=== PATIENT | male | born 1960 | race Caucasian/White ===

== ENCOUNTER 2020-11-12 00:46 | Day surgery (SDC) | payer OTHER, SELFPAY ==
[2020-10-31 14:26] VITALS: BMI 27.3
[2020-11-12 06:58] VITALS: BP 134/90; PULSE 55; RESP 18; TEMP 35.9; O2SAT 100; BMI 27.3
[2020-11-12] MEDS: LACTATED RINGERS 1,000 ML 30 ML IV CONT (07:11)
--- NOTE | 2020-11-12 07:16 | PM.HPGS ---
History of Present Illness History of Present Illness Consent: Risks, benefits, and alternatives have been discussed and questions answered. Patient agrees to proceed with procedure. Chief complaint: neoplasm screening Narrative: Franky Cohen is a 60 year old male Referred for colon cancer screening; his last colonoscopy was 10 years ago Review of Systems Review of Systems: All systems reviewed & are unremarkable except as noted in HPI and below PMFSH Family History Family History Other Cerebrovascular accident Family history of allergic disorder Hypertension Malignant neoplasm of prostate Social History Social History Smoking status: Never smoker Alcohol intake: current Drinks per week: 5 Living arrangements: with family Spiritual care concerns: No Meds Home Medications and Allergies Home Medications Medication Instructions Recorded Confirmed Type sodium,potassium,mag sulfates 17.5 See Rx Instructions PO .COMPLEX 10/03/20 Rx gram-3.13 gram-1.6 gram oral soln #354 ml amlodipine 5 mg PO DAILY 10/31/20 11/12/20 History rosuvastatin 5 mg PO DAILY 10/31/20 11/12/20 History Allergies Allergy/AdvReac Type Severity Reaction Status Date / Time Penicillins Allergy Unknown Other Verified 10/31/20 14:25 Vital Signs Vital Signs - 24 hr 11/12/20 06:58 Temperature 35.9 C L Pulse Rate 55 L Respiratory Rate 18 Blood Pressure 134/90 Pulse Oximetry 100 Exam Resp: Auscultation: clear to auscultation bilaterally Cardio: Rate: regular rate Rhythm: regular rhythm GI: GI Palp: Yes Soft to palpation and No Tenderness to palpation present (GI) Assessment and Plan Assessment and plan (1) Colon cancer screening: Code(s): Z12.11 - Encounter for screening for malignant neoplasm of colon Status: Acute Assessment and Plan: Colonoscopy with possible biopsy or polypectomy or cautery or injection of substances.
--- NOTE | 2020-11-12 07:21 | WPDANESEPPF ---
Anes - Initial Pre Proc Eval Procedure: Operation Date: 11/12/20 08:00 Proposed Procedures p Screening Colonoscopy - Steve Moses MD Date/Time: 11/12/20 07:21 Surgeon: Steve Moses MD Pre Op Diagnosis: neoplasm screening Patient Data Age: 60 Gender: M Height: 1.75 m Weight: 84.2 kg Last Vital Signs Temp 35.9 C L 11/12/20 06:58 Pulse 55 L 11/12/20 06:58 Resp 18 11/12/20 06:58 BP 134/90 11/12/20 06:58 Pulse Ox 100 11/12/20 06:58 Allergies Allergy/AdvReac Type Severity Reaction Status Date / Time Penicillins Allergy Unknown Other Verified 10/31/20 14:25 Home Medications Medication Instructions Recorded Confirmed Type sodium,potassium,mag sulfates 17.5 See Rx Instructions PO .COMPLEX 10/03/20 Rx gram-3.13 gram-1.6 gram oral soln #354 ml amlodipine 5 mg PO DAILY 10/31/20 11/12/20 History rosuvastatin 5 mg PO DAILY 10/31/20 11/12/20 History Patient hx anesthesia problems: none Family hx anesthesia problems: none PMFSH Past Medical History Medical History (Updated 11/12/20 @ 07:21 by Adrian Yen MD) HTN (hypertension) Hyperlipidemia Surgical History Surgical History (Updated 11/12/20 @ 07:22 by Adrian Yen MD) H/O arthroscopic knee surgery H/O hernia repair Family History Family History Other Cerebrovascular accident Family history of allergic disorder Hypertension Malignant neoplasm of prostate Social History Social History Smoking status: Never smoker Alcohol intake: current Drinks per week: 5 Living arrangements: with family Spiritual care concerns: No Anes - Eval Final PreProcedure Day of Procedure 11/12/20 07:21 Patient weight: overweight Heart: regular rate and rhythm Lungs: clear to auscultation Airway: Mallampati scale class II Neurological: alert and oriented Last oral intake: >/= 8 hours ASA classification: II Emergent: no Anesthetic plan: proceed Anesthesia type and monitoring: general GIVS and standard monitoring Informed Consent: The patient's anesthetic plan and its attendant risks and benefits were discussed with the patient/family/POA. Questions were solicited and answers provided to the satisfaction of the patient/family/POA.
[2020-11-12 08:11] VITALS: BP 99/72; PULSE 55; RESP 19; O2SAT 96
[2020-11-12 08:21] VITALS: BP 113/70; PULSE 58; RESP 18; O2SAT 98
[2020-11-12 08:31] VITALS: BP 107/75; PULSE 52; RESP 23; O2SAT 98
== END 2020-11-12 08:38 | disposition home or self-care (01) ==
PROVIDERS: PCP Physician Assistant; Visit Provider Internal Medicine Gastroenterology
PROC: 0DJD8ZZ Inspection of Lower Intestinal Tract, Via Natural or Artificial Opening Endoscopic (ICD-10-PCS; CPT 45378; principal; 2020-11-12 08:00)
DX: Z12.11 Encounter for screening for malignant neoplasm of colon (principal); K57.30 Diverticulosis of large intestine without perforation or abscess without bleeding; I10 Essential (primary) hypertension; E78.5 Hyperlipidemia, unspecified
CPT/HCPCS: 45378; J2704; J7120

== ENCOUNTER 2025-03-23 02:33 | Day surgery (SDC) | payer BC, SELFPAY ==
[2025-03-03 13:36] VITALS: BMI 27.0
--- OUTSIDE RECORDS SUMMARY | 2025-03-23 02:36 | XMS_ITS | Encounter Summary ---
Author Organization [facility] Address [address] [place] [address] Care Team Providers Care Geriatrics Physician Name Role Phone Rodolfo Rodriguez MD Primary Care Provider Encounter Details Date Type Department Care Team (Latest Contact Info) Description 12/09/2004 Outpatient Historical [facility] Chinmay Cuellar MD NO ADDRESS ON FILE PAIN IN [place] (Primary Dx) Social History Tobacco Use Types Packs/Day Years Used Date Smoking Tobacco: Never Assessed Sex and Gender Information Value Date Recorded Sex Assigned at Not on file Legal Sex Male 5:15 AM RN ADVICE Gender Identity Not on file Sexual Orientation Not on file documented as of this encounter Plan of Treatment Not on file documented as of this encounter Visit Diagnoses Diagnosis Pain in limb- Primary documented in this encounter Care Teams Geriatrics Physician Relationship Specialty Start Date End Date Rodolfo Rodriguez MD [address] [place] [phone] PCP - General 12/09/04 documented as of this encounter
--- OUTSIDE RECORDS SUMMARY | 2025-03-23 02:36 | XMS_ITS | Clinical Summary ---
Author Organization [facility] Address [address] [place] [address] Care Team Providers Care Tacking Machine Operator Name Role Phone Enoch Fournier MD Primary Care Provider Source Comments [facility],non-owned Affiliates and Associated Physician Practices is amultiple site organization consisting of ambulatory clinics and hospital sitesin [place], [place], [place] and [place]. This disclosure is being madepursuant to the Care Everywhere program and may not contain all information available regarding this patient. Last updated 18.[facility] Allergies Active Allergy Reactions Criticality Noted Date Comments Penicillins Unknown 01/31/2020 Medications * Be aware that medications may not be up to date on this document. Alwaysverify current medications with the patient. amLODIPine (NORVASC) 5 MG tablet Take 5 mg by mouth once daily 09/21/2019 Active doxycycline monohydrate 100 MG tablet Take 100 mg by mouth once daily 01/13/2020 Active IBUPROFEN PO Take by mouth as needed Active Active Problems Problem Noted Date Diagnosed Date Lipid screening 06/01/2013 Family History Medical History Relation Name Comments CVA Father Dementia Mother Relation Name Status Comments Brother Alive Father Mother Social History Tobacco Use Types Packs/Day Years Used Date Smoking Tobacco: Never Smokeless Tobacco: Never Alcohol Use Standard Drinks/Week Comments Yes 0 (1 standard drink = 0.6 oz pur e alcohol) AUDIT-C Answer Date Recorded Q1: How often do you have a drink containing alc ohol? 2-3 times a week 01/31/2020 Q2: How many drinks containi ng alcohol do you have on a typical day when you are drinking? 1 or 2 01/31/2020 Q3: How often do you have si x or more drinks on one occasion? 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 Not on file Not on file Not on file Last Filed Vital Signs Vital Sign Reading Time Taken Comments Blood Pressure 154/92 01/31/2020 2:06 PM CDT Pulse - - Temperature - - Respiratory Rate - - Oxygen Saturation - - Inhaled Oxygen Concentration - - Weight 88.5 kg (195 lb) 01/31/2020 2:06 PM CDT Height 175.3 cm (5' 9) 01/31/2020 2:06 PM CDT Body Mass Index 28.8 01/31/2020 2:06 PM CDT Plan of Treatment Health Maintenance Due Date Last Done Comments COLOGUARD (AGES 45-75) - COL ON CA SCREENING 1960 COLON MONITORING 1960 COLONOSCOPY - COLON CA SCREENING 1960 CT COLONOGRAPHY - COLON CA SCREENING 1960 Colorectal Cancer Screening 1960 FIT - COLON CA SCREENING 1960 FLEX SIG - COLON CA SCREENING 1960 HIV SCREENING 08/07/1975 HEPATITIS C SCREENING 08/02/1978 DTAP/TDAP/TD VACCINES (1 - Tdap) 08/07/1979 PNEUMOCOCCAL VACCINE 50+ (1 of 1 - PCV) 2010 ZOSTER VACCINE (1 of 2) 2010 LIPID TESTING 06/01/2018 06/01/2013, 07/19/2008 SCREENING FOR DIABETES 01/31/2020 4, 07/19/2008 DEPRESSION SCREENING 04/20/2024 COVID-19 VACCINE ( - 2024-2 6 season) 2024 INFLUENZA VACCINE (#1) 2024 Respiratory Syncytial Virus (RSV) Vaccine Pt: or over 60 yrs (1 - 1-dose 75+ series) 08/07/2035 HEPATITIS B VACCINE Aged Out No longe r eligible based on patient's age to complete this topic HIB VACCINE Aged Out No longer eligi ble based on patient's age to complete this topic HPV VACCINE Aged Out No longer eligi ble based on patient's age to complete this topic MENINGOCOCCAL (Group B) VACCINE SHARED DECISION-MAKING Aged Out No longer eligible based on patient's age to complete this topic MENINGOCOCCAL GROUPS A/C/Y/W VACCINE Aged Out No longer eligible b ased on patient's age to complete this topic Procedures Procedure Name Priority Date/Time Associated Diagnosis Comments GLUCOSE Routine 06/01/2013 8:11 AM PROOFER Lipid screening LIPID PROFILE Routine 06/01/2013 8:11 AM PROOFER Lipid screening from Last 3 Months or Most Recently Relevant to Health Maintenance Results * GLUCOSE (06/01/2013 8:11 AM PROOFER) Glucose 89 74 - 106 mg/dL 06/01/2013 10:[address] [facility] Blood BLOOD SPECIMEN / Unknown Lab Venipuncture / Unknown 06/01/2013 8:11 AM PROOFER 06/01/2013 9:40 AM [facility] Lydia Brady MD LAB - CHEMISTRY ORDERABLES Final Result [facility] [address] [place] [address] * (ABNORMAL) LIPID PROFILE (06/01/2013 8:11 AM PROOFER) Cholesterol 224(H) <200 mg/dL 06/01/2013 10:[address] [facility] Triglycerides 141 <150 mg/dL 06/01/2013 10:[address] [facility] HDL Cholesterol 32(L) >40 mg/dL 4 10:[address] [facility] LDL Calculated 164(H) <130 mg/dL 06/01/2013 10:[address] [facility] VLDL Calculated 28 <=30 mg/dL 4 10:[address] [facility] Chol HDL Ratio 7.0(H) <4.5 06/01/2013 10:[address] [facility] Blood BLOOD SPECIMEN / Unknown Lab Venipuncture / Unknown 06/01/2013 8:11 AM PROOFER 06/01/2013 9:40 AM [facility] us Lydia Brady MD LAB - CHEMISTRY ORDERABLES Final Result [facility] [address] [place] [address] from Last 3 Months or Most Recently Relevant to Health Maintenance [facility] Care Teams Tacking Machine Operator Relationship Specialty Start Date End Date Enoch Fournier MD PCP - General Internal Medicine 01/31/20
--- OUTSIDE RECORDS SUMMARY | 2025-03-23 02:36 | XMS_ITS | Data Portability ---
Author Organization [place] - [facility] [employer], Main Office Address [address] [place] [address] Assessment No assessment recorded. Plan of Treatment Reminders Order Date Submit Date Provider Last Modified By Organization Details Last Modified Time Details Appointments None recorded. Lab None recorded. Referral hand surgeon referral 2022 023 [email or web address] Not available 12:28:42 Procedures None recorded. Surgeries None recorded. Imaging MRI, knee, w/o contrast - No auth required per Emily Adamson at [facility]. 2022 023 [facility], [address] , [place], [address], 3 09:36:33 Medication Orders None recorded. Patient TargetsNo targets recorded. Patient InstructionsNo instructions recorded. 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 1 normal Not Available [facility] [address] [place], [address], 03/21/2021 08:21:34 03/20/20 21 03/21/2021 HEPAT IC FUNCT ION PANEL albumin 4.1 g/dL 3.6-5. 1 normal Not Available [facility] [address] [place], [address], 03/21/2021 08:21:34 03/20/20 21 03/21/2021 HEPAT IC FUNCT ION PANEL globulin 2.4 g/dL_ (calc ) 1.9-3. 7 normal Not Available [address] [address] [place], [address], 03/21/2021 08:21:34 03/20/20 21 03/21/2021 HEPAT IC FUNCT ION PANEL albumin/glob ulin ratio 1.7 (calc ) 1.0-2. 5 normal Not Available [address], [address], 03/21/2021 08:21:34 03/20/20 21 03/21/2021 HEPAT IC FUNCT ION PANEL bilirubin, total 0.9 mg/dL 0.2-1. 2 normal Not Available [address], [address], 03/21/2021 08:21:34 03/20/20 21 03/21/2021 HEPAT IC FUNCT ION PANEL bilirubin, direct 0.2 mg/dL < or = 0.2 normal Not Available [address], [address], 03/21/2021 08:21:34 03/20/20 21 03/21/2021 HEPAT IC FUNCT ION PANEL bilirubin, indirect 0.7 mg/dL _(ion c) 0.2-1. 2 normal Not Available [address] [address] [place], [address], 03/21/2021 08:21:34 03/20/20 21 03/21/2021 HEPAT IC FUNCT ION PANEL alkaline phosphatase 57 U/L 35-144 normal Not Available [facility] [employer] [address] [address] [place], [address], 03/21/2021 08:21:34 03/20/20 21 03/21/2021 HEPAT IC FUNCT ION PANEL AST 24 U/L 10-35 normal Not Available [address], [address], 03/21/2021 08:21:34 03/20/20 21 03/21/2021 HEPAT IC FUNCT ION PANEL ALT 22 U/L 9-46 normal Not Available [address], [address], 03/21/2021 08:21:34 03/20/20 21 03/21/2021 LIPID PANEL WITH REFLE X TO DIREC T LDL cholesterol, total 185 mg/dL <200 normal Not Available [address], [address], 03/21/2021 08:21:34 03/20/20 21 03/21/2021 LIPID PANEL WITH REFLE X TO DIREC T LDL HDL cholesterol 47 mg/dL > or = 40 normal Not Available [address], [address], 03/21/2021 08:21:34 03/20/20 21 03/21/2021 LIPID PANEL WITH REFLE X TO DIREC T LDL triglyceride s 100 mg/dL <150 normal Not Available [address], [address], 03/21/2021 08:21:34 03/20/20 21 03/21/2021 LIPID PANEL WITH REFLE X TO DIREC T LDL LDL-choleste rol 117 mg/dL _(ion c) high Refer ence range : <100 Vianney able range <100 mg/dL for prima ry preve ntion ; <70 mg/dL for patie nts with CHD or diabe tic patie nts with > or = 2 CHD risk facto rs. LDL-C is now calcu lated using the Vidhya n-Hop kins calcu latanders n, which is a valid ated novel metho d tessai marina nielsen r accur acy than the Fried tiffani equat ion in the estim ation of LDL-C . Vidhya n SS et al. LAMONT. 2013; 310(1 9): 2061- 2068 (http ://[facility] [place]. com/f aq/FA Q164) Not Available [facility] [address] , [place], [address], 03/21/2021 08:21:34 03/20/20 21 03/21/2021 LIPID PANEL WITH REFLE X TO DIREC T LDL chol/HDLC ratio 3.9 (calc ) <5.0 normal Not Available [facility] [address] [address] [place], [address], 03/21/2021 08:21:34 03/20/20 21 03/21/2021 LIPID PANEL WITH REFLE X TO DIREC T LDL non HDL cholesterol 138 mg/dL _(ion c) <130 high For patie nts with diabe robin plus 1 major ASCVD risk facto r, treat ing to a non-H DL-C goal of <100 mg/dL (LDL- C of <70 mg/dL ) is consi dered a thera peuti c optio n. Not Available [facility] [address] [place], [address], 03/21/2021 08:21:34 12/18/19 22 12/20/2021 TESTO STERO NE, TOTAL , MS testosterone , total, MS 434 NG/dL 250-11 00 For addit ional infor melissa hubbard e refer to https ://[facility] on.[employer]. [place]/f aq/To Avni cota LCMSM S (This link is being provi ded for infor sondra nal/e ducat ional purpo ses only. ) (Note ) This test was devel oped and its farnaz tical perfo rmanc e tom cteri stics have been deter mined by [facility]. It has not been clear ed or appro patrica by the FDA. This assay has been valid ated pursu ant to the CLIA regul ation s and is used for clini ion purpo ses. F med fusio n [address] [facility] [address] [place] [address] [phone] Christian bates MD Not Available [address], [address], 12/20/2021 12:57:23 12/18/19 22 12/20/2021 PSA, TOTAL PSA, total 1.48 NG/mL < or = 4.00 normal The total PSA value from this assay syste m is stand ardiz ed again st the WHO stand sofia. The test resul t will be appro ximat chan 20% lower when diomedes red to the equim olar- stand ardiz ed total PSA (Ma man Coult er). Diomedes rison of seria l PSA resul ts shoul d be inter prete d with this fact in mind. This test was perfo rmed using the [place] chemi lumin escen t metho d. Value s obtai srinivasa from diffe rent assay metho ds canno t be used inter moore eably . PSA level s, regar dless of value , shoul d not be inter prete d as absol adeline evide nce of the prese nce or absen ce of disea se. Not Available [address] [place], [address], 12/20/2021 12:57:22 12/18/19 22 12/20/2021 URINA LYSIS , COMPL ETE color yellow yellow normal Not Available [facility] [address] [address] [place], [address], 12/20/2021 12:57:21 12/18/19 22 12/20/2021 URINA LYSIS , COMPL ETE appearance clear clear normal Not Available [facility] [address], [address], 12/20/2021 12:57:21 12/18/19 22 12/20/2021 URINA LYSIS , COMPL ETE specific gravity 1.027 1.001- 1.035 normal Not Available [address], [address], 12/20/2021 12:57:21 12/18/19 22 12/20/2021 URINA LYSIS , COMPL ETE pH 6.0 5.0-8. 0 normal Not Available [address], [address], 12/20/2021 12:57:21 12/18/19 22 12/20/2021 URINA LYSIS , COMPL ETE glucose negati ve negati ve normal Not Available [facility] [address], [address], 12/20/2021 12:57:21 12/18/19 22 12/20/2021 URINA LYSIS , COMPL ETE bilirubin negati ve negati ve normal Not Available [address], [address], 12/20/2021 12:57:21 12/18/19 22 12/20/2021 URINA LYSIS , COMPL ETE ketones trace negati ve abnormal Not Available [facility] [address], [address], 12/20/2021 12:57:21 12/18/19 22 12/20/2021 URINA LYSIS , COMPL ETE occult blood negati ve negati ve normal Not Available [facility] [address], [address], 12/20/2021 12:57:21 12/18/19 22 12/20/2021 URINA LYSIS , COMPL ETE protein trace negati ve abnormal Not Available [facility] [address], [address], 12/20/2021 12:57:21 12/18/19 22 12/20/2021 URINA LYSIS , COMPL ETE nitrite negati ve negati ve normal Not Available [facility] - [address], [address], 12/20/2021 12:57:21 12/18/19 22 12/20/2021 URINA LYSIS , COMPL ETE leukocyte esterase negati ve negati ve normal Not Available [address], [address], 12/20/2021 12:57:21 12/18/19 22 12/20/2021 URINA LYSIS , COMPL ETE WBC none seen /hpf < or = 5 normal Not Available [address], [address], 12/20/2021 12:57:21 12/18/19 22 12/20/2021 URINA LYSIS , COMPL ETE RBC 0-2 /hpf < or = 2 normal Not Available [address], [address], 12/20/2021 12:57:21 12/18/19 22 12/20/2021 URINA LYSIS , COMPL ETE squamous epithelial cells none seen /hpf < or = 5 normal Not Available [address], [address], 12/20/2021 12:57:21 12/18/19 22 12/20/2021 URINA LYSIS , COMPL ETE bacteria none seen /hpf none seen normal Not Available [address], [address], 12/20/2021 12:57:21 12/18/19 22 12/20/2021 URINA LYSIS , COMPL ETE hyaline cast 0-5 /lpf none seen abnormal Not Available [address], [address], 12/20/2021 12:57:21 12/18/19 22 12/20/2021 CBC (INCL UDES DIFF/ PLT) white blood cell count 6.3 thous and/u L 3.8-10 .8 normal Not Available [address], [address], 12/20/2021 12:57:21 12/18/19 22 12/20/2021 CBC (INCL UDES DIFF/ PLT) red blood cell count 5.27 christopher on/uL 4.20-5 .80 normal Not Available [address], [address], 12/20/2021 12:57:21 12/18/19 22 12/20/2021 CBC (INCL UDES DIFF/ PLT) hemoglobin 15.0 g/dL 13.2-1 7.1 normal Not Available [address], [address], 12/20/2021 12:57:21 12/18/19 22 12/20/2021 CBC (INCL UDES DIFF/ PLT) hematocrit 46.5 % 38.5-5 0.0 normal Not Available [address], [address], 12/20/2021 12:57:21 12/18/19 22 12/20/2021 CBC (INCL UDES DIFF/ PLT) MCV 88.2 fL 80.0-1 00.0 normal Not Available [address], [address], 12/20/2021 12:57:21 12/18/19 22 12/20/2021 CBC (INCL UDES DIFF/ PLT) MCH 28.5 pg 27.0-3 3.0 normal Not Available [address], [address], 12/20/2021 12:57:21 12/18/19 22 12/20/2021 CBC (INCL UDES DIFF/ PLT) MCHC 32.3 g/dL 32.0-3 6.0 normal Not Available [address], [address], 12/20/2021 12:57:21 12/18/19 22 12/20/2021 CBC (INCL UDES DIFF/ PLT) RDW 13.3 % 11.0-1 5.0 normal Not Available [address], [address], 12/20/2021 12:57:21 12/18/19 22 12/20/2021 CBC (INCL UDES DIFF/ PLT) platelet count 229 thous and/u L 140-40 0 normal Not Available [address], [address], 12/20/2021 12:57:21 12/18/19 22 12/20/2021 CBC (INCL UDES DIFF/ PLT) MPV 8.9 fL 7.5-12 .5 normal Not Available [address], [address], 12/20/2021 12:57:21 12/18/19 22 12/20/2021 CBC (INCL UDES DIFF/ PLT) absolute neutrophils 3812 cells /uL 1500-7 800 normal Not Available [address], [address], 12/20/2021 12:57:21 12/18/19 22 12/20/2021 CBC (INCL UDES DIFF/ PLT) absolute lymphocytes 1481 cells /uL 850-39 00 normal Not Available [address], [address], 12/20/2021 12:57:21 12/18/19 22 12/20/2021 CBC (INCL UDES DIFF/ PLT) absolute monocytes 460 cells /uL 200-95 0 normal Not Available [address], [address], 12/20/2021 12:57:21 12/18/19 22 12/20/2021 CBC (INCL UDES DIFF/ PLT) absolute eosinophils 460 cells /uL 15-500 normal Not Available [facility] [place], [place], [address], 12/20/2021 12:57:21 12/18/19 22 12/20/2021 CBC (INCL UDES DIFF/ PLT) absolute basophils 88 cells /uL 0-200 normal Not Available [facility] [address], [address], 12/20/2021 12:57:21 12/18/19 22 12/20/2021 CBC (INCL UDES DIFF/ PLT) neutrophils 60.5 % normal Not Available [facility] [address], [address], 12/20/2021 12:57:21 12/18/19 22 12/20/2021 CBC (INCL UDES DIFF/ PLT) lymphocytes 23.5 % normal Not Available [facility] [address], [address], 12/20/2021 12:57:21 12/18/19 22 12/20/2021 CBC (INCL UDES DIFF/ PLT) monocytes 7.3 % normal Not Available [facility] [address], [address], 12/20/2021 12:57:21 12/18/19 22 12/20/2021 CBC (INCL UDES DIFF/ PLT) eosinophils 7.3 % normal Not Available [facility] [address], [address], 12/20/2021 12:57:21 12/18/19 22 12/20/2021 CBC (INCL UDES DIFF/ PLT) basophils 1.4 % normal Not Available [facility] [address], [address], 12/20/2021 12:57:21 12/18/19 22 12/20/2021 HEMOG LOBIN A1C hemoglobin A1C 5.3 %_of_ total _HGB <5.7 normal For the purpo se of berny peres for the prese nce of diabe robin: <5.7% Consi stent with the absen ce of diabe robin 5.7-6 .4% Consi stent with incre ased risk for diabe robin (pred iabet es) > or =6.5% Consi stent with diabe robin This assay resul t is consi stent with a decre ased risk of diabe robin. Curre ntly, no conse nsus exist s danii gray use of hemog lobin A1c for diagn osis of diabe robin in child abner. Accor ding to Ameri can Diabe robin Assoc iatio n (ADA) guide lines , hemog lobin A1c <7.0% repre sents optim al contr ol in non-p regna nt diabe tic patie nts. Diffe rent metri cs may apply to speci fic patie nt popul ation s. Stand ards of Medic al Care in Diabe robin(A DA). Not Available [address] [place], [address], 12/20/2021 12:57:20 12/18/19 22 12/20/2021 COMPR EHENS DIMA METAB OLIC PANEL glucose 86 mg/dL 65-99 normal Fasti ng refer ence inter yanci Not Available [address] [place], [address], 12/20/2021 12:57:19 12/18/19 22 12/20/2021 COMPR EHENS DIMA METAB OLIC PANEL urea nitrogen (BUN) 28 mg/dL 7-25 high Not Available [facility] [address], [address], 12/20/2021 12:57:19 12/18/19 22 12/20/2021 COMPR EHENS DIMA METAB OLIC PANEL creatinine 1.16 mg/dL 0.70-1 .35 normal Not Available [facility] [address] [address] [place], [address], 12/20/2021 12:57:19 12/18/19 22 12/20/2021 COMPR EHENS DIMA METAB OLIC PANEL eGFR 72 mL/mi n/1.7 3m2 > or = 60 normal The eGFR is based on the CKD-E PI 2020 equat ion. To calcu late the new eGFR from a previ ous Creat inine or Cysta tin C resul t, go to https ://alen carias.courtney villa.o renny/pr ofess ional s/ kdoqi /gfr% 5Fcal culat or Not Available [facility] [address] [address] [place], [address], 12/20/2021 12:57:19 12/18/19 22 12/20/2021 COMPR EHENS DIMA METAB OLIC PANEL BUN/creatini ne ratio 24 (calc ) 6-22 high Not Available [address], [address], 12/20/2021 12:57:19 12/18/19 22 12/20/2021 COMPR EHENS DIMA METAB OLIC PANEL sodium 140 mmol/ L 135-14 6 normal Not Available [facility] [address], [address], 12/20/2021 12:57:19 12/18/19 22 12/20/2021 COMPR EHENS DIMA METAB OLIC PANEL potassium 4.3 mmol/ L 3.5-5. 3 normal Not Available [facility] [address], [address], 12/20/2021 12:57:19 12/18/19 22 12/20/2021 COMPR EHENS DIMA METAB OLIC PANEL chloride 104 mmol/ L 98-110 normal Not Available [facility] [address], [address], 12/20/2021 12:57:19 12/18/19 22 12/20/2021 COMPR EHENS DIMA METAB OLIC PANEL carbon dioxide 28 mmol/ L 20-32 normal Not Available [facility] [address], [address], 12/20/2021 12:57:19 12/18/19 22 12/20/2021 COMPR EHENS DIMA METAB OLIC PANEL calcium 9.7 mg/dL 8.6-10 .3 normal Not Available [address], [address], 12/20/2021 12:57:19 12/18/19 22 12/20/2021 COMPR EHENS DIMA METAB OLIC PANEL protein, total 6.4 g/dL 6.1-8. 1 normal Not Available [address], [address], 12/20/2021 12:57:19 12/18/19 22 12/20/2021 COMPR EHENS DIMA METAB OLIC PANEL albumin 4.2 g/dL 3.6-5. 1 normal Not Available [address], [address], 12/20/2021 12:57:19 12/18/19 22 12/20/2021 COMPR EHENS DIMA METAB OLIC PANEL globulin 2.2 g/dL_ (calc ) 1.9-3. 7 normal Not Available [address], [address], 12/20/2021 12:57:19 12/18/19 22 12/20/2021 COMPR EHENS DIMA METAB OLIC PANEL albumin/glob ulin ratio 1.9 (calc ) 1.0-2. 5 normal Not Available [address], [address], 12/20/2021 12:57:19 12/18/19 22 12/20/2021 COMPR EHENS DIMA METAB OLIC PANEL bilirubin, total 0.9 mg/dL 0.2-1. 2 normal Not Available [address], [address], 12/20/2021 12:57:19 12/18/19 22 12/20/2021 COMPR EHENS DIMA METAB OLIC PANEL alkaline phosphatase 56 U/L 35-144 normal Not Available [facility] [address], [address], 12/20/2021 12:57:19 12/18/19 22 12/20/2021 COMPR EHENS DIMA METAB OLIC PANEL AST 20 U/L 10-35 normal Not Available [address], [address], 12/20/2021 12:57:19 12/18/19 22 12/20/2021 COMPR EHENS DIMA METAB OLIC PANEL ALT 23 U/L 9-46 normal Not Available [address], [address], 12/20/2021 12:57:19 12/18/19 22 12/20/2021 LIPID PANEL WITH REFLE X TO DIREC T LDL cholesterol, total 164 mg/dL <200 normal Not Available [address], [address], 12/20/2021 12:57:19 12/18/19 22 12/20/2021 LIPID PANEL WITH REFLE X TO DIREC T LDL HDL cholesterol 42 mg/dL > or = 40 normal Not Available [address], [address], 12/20/2021 12:57:19 12/18/19 22 12/20/2021 LIPID PANEL WITH REFLE X TO DIREC T LDL triglyceride s 117 mg/dL <150 normal Not Available [address], [address], 12/20/2021 12:57:19 12/18/19 22 12/20/2021 LIPID PANEL WITH REFLE X TO DIREC T LDL LDL-choleste rol 101 mg/dL _(ion c) high Refer ence range : <100 Vianney able range <100 mg/dL for prima ry preve ntion ; <70 mg/dL for patie nts with CHD or diabe tic patie nts with > or = 2 CHD risk facto rs. LDL-C is now calcu lated using the [facility]-Hop kins calcu christine n, which is a valid ated novel metho d provi ding morales r accur acy than the Fried tiffani equat ion in the estim ation of LDL-C . Vidhya quinteros SS et al. LAMONT. 2013; 310(1 9): 2061- 206 (http ://ed ucati on.Qu estDi Enteye. com/f aq/FA Q164) Not Available [facility] [address] [address] [place], [address], 12/20/2021 12:57:19 12/18/1912/20/2021 LIPID PANEL WITH REFLE X TO DIREC T LDL chol/HDLC ratio 3.9 (calc ) <5.0 normal Not Available [facility] [address], [place], [address], 12/20/2021 12:57:19 12/18/1912/20/2021 LIPID PANEL WITH REFLE X TO DIREC T LDL non HDL cholesterol 122 mg/dL _(ion c) <130 normal For patie nts with diabe robin plus 1 major ASCVD risk facto r, treat ing to a non-H DL-C goal of <100 mg/dL (LDL- C of <70 mg/dL ) is consi dered a thera peuti c optio n. Not Available [facility] [address], [place], [address], 12/20/2021 12:57:19 12/18/1912/20/2021 TSH+F REE T4 TSH 4.95 mIU/L 0.40-4 .50 high Not Available [facility] [address] [address] [place], [address], 12/20/2021 12:57:18 12/18/19 22 12/20/2021 TSH+F REE T4 T4, free 1.1 NG/dL 0.8-1. 8 normal Not Available [address] [address] [place], [address], 12/20/2021 12:57:18 01/22/2001/23/2022 THYRO ID PEROX IDASE AND THYRO GLOBU DONNA ANTIB ODIES thyroglobuli n antibodies <1 IU/mL < or = 1 normal Not Available [address], [address], 01/23/2022 15:16:13 01/22/2001/23/2022 THYRO ID PEROX IDASE AND THYRO GLOBU DONNA ANTIB ODIES thyroid peroxidase antibodies 1 IU/mL <9 normal Not Available [address], [address], 01/23/2022 15:16:13 01/22/20 22 01/23/2022 TSH+F REE T4 TSH 5.63 mIU/L 0.40-4 .50 high Not Available [address], [address], 01/23/2022 15:16:13 01/22/20 22 01/23/2022 TSH+F REE T4 T4, free 1.2 NG/dL 0.8-1. 8 normal Not Available [address], [address], 01/23/2022 15:16:13 04/02/20 22 04/04/2022 THYRO ID PEROX IDASE AND THYRO GLOBU DONNA ANTIB ODIES thyroglobuli n antibodies <1 IU/mL < or = 1 normal Not Available [address], [address], 04/04/2022 02:43:02 04/02/20 22 04/04/2022 THYRO ID PEROX IDASE AND THYRO GLOBU DONNA ANTIB ODIES thyroid peroxidase antibodies 1 IU/mL <9 normal Not Available [address] [address] [place], [address], 04/04/2022 02:43:02 04/02/20 22 04/04/2022 TSH+F REE T4 TSH 2.74 mIU/L 0.40-4 .50 normal Not Available [facility] [address] [address] [place], [address], 04/04/2022 02:43:00 04/02/20 22 04/04/2022 TSH+F REE T4 T4, free 1.3 NG/dL 0.8-1. 8 normal Not Available [facility] [place] [address] [place], [address], 04/04/2022 02:43:00 02/12/20 21 11/12/2020 colon oscop y scree larisa (PROC ) No observ ation record ed. [id number] Steve Moses MD [address] [facility] [address], [place], [address], 06/18/2022 21:30:38 08/29/19 23 08/27/2022 MRI, knee, w/o contr ast No observ ation record ed. [email or web address] [facility] [address] [place] [address], [place], [address], 08/29/2022 12:02:00 Result Notes None recorded. Problems Name Problem SNOMED Code Status Onset Date Resolution Date Notes Provider Name and Address Organization Details Recorded Time Hyperlipid emia 61714120 Active 2021 Not Available [facility] 3 21:29:40 Essential hypertensi on 67132224 Active 2021 Not Available [facility] 3 21:29:40 Benign essential hypertensi on 2775399 Active 2021 Not Available [facility] 3 21:29:40 Thyroid function tests abnormal 175335927 Active 2021 Not Available [facility] 3 21:29:40 Hypothyroi dism 84649071 Active 10/13/ 2022 Not Available [facility] 21:29:40 Acute bronchitis 55603512 Active 2022 Not Available [facility] 21:29:39 Derangemen t of right knee 8649213602175 9109 Active 2022 JENNA Dawn [address] [facility], [address], [place], [address] , [employer] [facility] 3 14:56:00 Digital mucous cyst of right hand 7430607837851 103 Active 2022 JENNA Dawn [address], [address], [place], [address] , [employer] [facility] 14:56:53 Tear of meniscus of knee 698455683 Active 2022 JENNA Dawn [address] [facility], [address], [place], [address] , [employer] [facility] 14:02:05 Problem Notes None recorded. Procedures Surgical History Date Name Laterality Status Provider Name and Address Organization Details Recorded Time Orthopedic Surgery completed Not Available [facility] 06/18/2022 21:29:06 Hernia Repair completed Not Available [facility] 06/18/2022 21:29:06 Imaging Results None recorded. Procedure Notes None recorded. Medical Equipment None Reported. Allergies Allergen ID Allergen Name Allergen Category Reaction Reaction Severity Criticality Documentation Date Start Date Code Code System Note Provider Name and Address Organization Details Recorded Time 98121 Product containin g penicilli n (product) medicatio n Not available Not available Not available 06/18/2022 42517 8001 SNOMED Not Available [facility] 21:30:35 Medications Name Sig Start Date Stop Date Status Note LastModified by Organization Details LastModified Time amoxicillin 500 mg capsule GIVE 1 CAPSULE BY MOUTH THREE TIMES DAILY 08/25 completed Not Available Not Available Not Available clindamycin HCl 300 mg capsule 03/28 completed Not Available Not Available Not Available benzonatate 200 mg capsule Take 1 capsule 3 times a day by oral route. 08/25 completed Not Available Not Available Not Available hydrocodone 5 mg-acetamin ophen 325 mg tablet TAKE 1 TABLET BY MOUTH EVERY 4 HOURS NEEDED FOR PAIN active Not Available Not Available No t Available fluorouraci l 5 % topical cream APPLY A THIN LAYER OF CREAM TOPICALLY TO THE LEFT SIDE OF FACE TWICE DAILY FOR 3 WEEKS. active Not Available Not Available No t Available Zithromax Z-Manuel 250 mg tablet TAKE 2 TABLETS (500 MG) BY ORAL ROUTE ONCE DAILY FOR 1 DAY THEN 1 TABLET (250 MG) BY ORAL ROUTE ONCE DAILY FOR 4 DAYS 08/25 completed Not Available Not Available Not Available amlodipine 5 mg tablet Take 1 tablet by mouth once daily 2022 active Not Available Not Available Not Avai lable doxycycline monohydrate 100 mg tablet TAKE 1 TABLET BY MOUTH TWICE DAILY FOR 1 WEEK THEN TAKE 1 TABLET BY MOUTH ONCE DAILY FOR 1 WEEK active Not Available Not Available No t Available doxycycline monohydrate 50 mg capsule TAKE 1 CAPSULE BY MOUTH ONCE DAILY 12/09 completed Not Available Not Available Not Available levothyroxi ne 50 mcg tablet Take 1 tablet every day by oral route in the morning. active Not Available Not Available No t Available cephalexin 500 mg capsule TAKE 1 CAPSULE BY MOUTH TWICE DAILY FOR 10 DAYS 12/09 completed Not Available Not Available Not Available erythromyci n 5 mg/gram (0.5 %) eye ointment APPLY TO LEFT EYELID INCISIONS THREE TIMES DAILY. ONLY PLACE OINTMENT INSIDE THE EYE FOR IRRITATIO N active Not Available Not Available No t Available oseltamivir 75 mg capsule TAKE 1 CAPSULE BY MOUTH TWICE DAILY FOR 5 DAYS 01/15 completed Not Available Not Available Not Available ibuprofen 600 mg tablet 03/28 completed Not Available Not Available Not Available neomycin 3.5 mg/g-polymy trae B 10,000 unit/g-dexa meth 0.1 % eye oint APPLY TO THE AFFECTED AREAS ON BOTH EYELIDS THREE TIMES DAILY AFTER WARM COMPRESS active Not Available Not Available No t Available rosuvastati n 5 mg tablet TAKE 1 TABLET BY MOUTH ONCE DAILY AT BEDTIME 2022 active Not Available Not Available Not Avai lable Suprep Bowel Prep Kit 17.5 gram-3.13 gram-1.6 gram oral solution USE DIRECTED 12/09 completed Not Available Not Available Not Available ID NOW COVID-19 Test Kit DIRECTED 12/09 completed Not Available Not Available Not Available BinaxNOW COVID-19 Ag Self Test kit 08/25 completed Not Available Not Available Not Available Vitals Date Recorded Body mass index (BMI) Body height Oxygen saturation Heart rate Respiratory rate Body temperature Body weight Systolic And Diastolic Provider Name and Address Organization Details Last Updated DateTime 1 29.2 kg/m2 175.26 cm 98 % 67 /min 16 /min 97.8 [degF] 17080.2 9 g 130/92 mm[Hg] Not Available [facility] 3 21:29:10 Date Recorded Body height Body mass index (BMI) Body weight Heart rate Oxygen saturation Body temperature Systolic And Diastolic Provider Name and Address Organization Details Last Updated DateTime 3 175.26 cm 28.6 kg/m2 15659.9 2 g 61 /min 97 % 98.3 [degF] 132/86 mm[Hg] Shante Mendez RN [facility] [employer] [facility] 3 14:32:37 Date Recorded Body mass index (BMI) Body height Oxygen saturation Heart rate Respiratory rate Body temperature Body weight Systolic And Diastolic Provider Name and Address Organization Details Last Updated DateTime 2 27.3 kg/m2 175.26 cm 97 % 60 /min 16 /min 97.3 [degF] 52872.5 9 g 122/70 mm[Hg] Not Available [facility] 3 21:29:10 Social History Question Answer Notes LastModified by Organizat ion Details LastModified Time Tobacco Smoking Status Never Smoker Shante Mendez RN [facility], [facility] [employer] 08/25/2022 14:25:36 What Is Your Level Of Caffeine Consumption? Moderate [id number] Information not available 06/18/2022 How Much Tobacco Do You Chew? None [id number] Information not available 06/18/2022 In The 14 Days Before Symptom Onset, Have You Had Close Contact With A Laboratory-confirm ed COVID-19 While That Case Was Ill? No [email or web address] Information n ot available 08/25/2022 In The 14 Days Before Symptom Onset, Have You Had Close Contact With A Person Who Is Under Investigation For COVID-19 While That Person Was Ill? No [email or web address] Information not available 08/25/2022 What Type Of Diet Are You Following? REGULAR [id number] Information not available 06/18/2022 Which Illicit Or Recreational Drugs Have You Used? None [email or web address] Information not available 08/25/2022 Have There Been Any Changes To Your Family Or Social Situation? No [email or web address] Information no t available 08/25/2022 Do You Use Insect Repellent Routinely? No [email or web address] Information not available 08/25/2022 What Was The Date Of Your Most Recent Tobacco Screening? 07/26/2020 [email or web address] Information not available 08/25/2022 What Is Your Relationship Status? [id number] Information not available 06/18/2022 Do You Use Your Seat Belt Or Car Seat Routinely? Yes [email or web address] Information not available 08/25/2022 Do You Have Smoke And Carbon Monoxide Detectors In Your Home? Yes [email or web address] Information not available 08/25/2022 How Much Tobacco Do You Smoke? No [id number] Information not available 06/18/2022 Do You Use Sunscreen Routinely? Yes [email or web address] Information not available 08/25/2022 Have You Recently Traveled Abroad? No [email or web address] Information not available 08/25/2022 Do You Have Any Dietary Restrictions? No [email or web address] Information not available 08/25/2022 Sex: Unknown Functional Status Question Answer Note LastModified by Organizat ion Details LastModified Time Do you use any illicit or recreational drugs? No [email or web address] Information not available 08/25/2022 Do you or have you ever used any other forms of tobacco or nicotine? No [email or web address] Information not available 08/25/2022 What is your level of alcohol consumption? Occasional [id number] Information not available 06/18/2022 Do you or have you ever used smokeless tobacco? 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 Never used electronic cigarettes [email or web address] Information not available 08/25/2022 What is your exercise level? Moderate [id number] Information not available 06/18/2022 Mental Status None recorded. Family History Relationship Description Onset Age of this Age Resolved Age Notes LastModified by Organization Details LastModified Time Mother Dementia [id number] Not available 06/18/2022 21:29:06 Father Dementia [id number] Not available 06/18/2022 21:29:06 Father Carcinoma of prostate [id number] Not available 06/18/2022 21:29:06 Medical History Condition Response EYE PROBLEMS Y HYPERTENSION Y HIGH CHOLESTEROL / HYPERLIPIDEMIA Y Past Encounters Encounter ID Performer Location Encounter Start Date Encounter Closed Date Diagnosis/Indication Diagnosis SNOMED-CT Code Diagnosis ICD10 Code Diagnosis IMO Codes Diagnosis Note [id number] JENNA Dawn [facility] [place] [address] [place] [address] 07/26/2020 00:00:00 08/16/2020 22:02:54 [id number] Enoch Fournier MD [facility] [place] [address] [place] [address] 12/10/2021 00:00:00 12/15/2021 00:52:53 [id number] JENNA Dawn [facility] [place] [address] [place] [address] 08/25/2022 14:22:38 08/25/2022 15:07:07 Derangement of right knee 4660692374 8233564 M23.91 refer for MRI rt. knee. suspect meniscal injury. Digital mu cous cyst of right hand 4545179983 075324 M67.441 refer to hand surgeon for excision Health Concerns Section Related Observation LastModified by Organization Detai ls LastModified Time None Recorded Concern Status LastModified by Organization Details LastModified Time None Recorded Advance Directives Directive None Recorded Payers Insurance Date Sequence Insurance Name Policy Number Policy Reece Covered Member ID Reece Member ID Guarantor Name 12/07/2022 1 TOYA (O) [id number] Franky Cohen [id number] Franky Cohen Notes Date Note Type Note Provider Name and Address Organization Details Recorded Time 08/25/2022 text/html Knee SwellingRep orted by PatientHPIFor associated symptoms, patient reportsweakness. For location, patient reportsright. For severity, patient reportsmoderate. For duration, patient reports3 weeks. For timing, patient reportsrelated to activity. For previous surgery, patient reportssurgical procedure:(meniscus tear about 2015 with surgical repair). For prior imaging, patient reportsnone. digital mucous cyst on right middle finger JENNA Dawn [address] [facility], [facility] [address], [place], [address], [place] [facility] [employer] [facility] 09/01/2022 14:06:27
--- OUTSIDE RECORDS SUMMARY | 2025-03-23 02:36 | XMS_ITS | Data Portability ---
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 Plan of Treatment Reminders Order Date Submit Date Provider Last Modified By Organization Details Last Modified Time Details Appointments ANY 15 2025 09:30A M JENNA Dawn Not available Not available Not available Lab CMP, serum or plasma 2023 025 [facility], [address], [address], [place], [address], 06/22/2024 08:52:47 CBC w/ auto diff 2023 025 [facility], [facility], [place], [address], 06/22/2024 08:53:44 PSA, total, serum or plasma 2023 025 [facility], [address], [place], [address], 06/23/2024 12:21:13 lipid panel, serum 2023 025 [facility], [address], [place], [address], 06/23/2024 12:21:06 HbA1c (hemoglob in A1c), blood 2023 025 [facility], [address], [address], [place], [address], 06/23/2024 12:21:18 TSH + free T4, serum 2023 025 [facility], [address], [address], [place], [address], 06/23/2024 12:20:10 PSA, total, serum or plasma 2023 024 [email or web address] [facility], [address], [address], [place], [address], 07/15/2023 17:22:44 CMP, serum or plasma 2023 024 [email or web address], [address], [address], [place], [address], 07/15/2023 17:22:44 CBC w/ auto diff 2023 024 [email or web address], [address], [address], [place], [address], 07/15/2023 17:22:44 lipid panel, serum 2023 024 [email or web address], [address], [address], [place], [address], 07/15/2023 17:22:44 TSH + free T4, serum 2023 024 [facility], [address], [address], [place], [address], 06/17/2023 09:25:41 hemoglobi n A1c, QN, blood 2023 024 [email or web address], [address], [address], [place], [address], 07/15/2023 17:22:44 Referral otolaryng ologist referral 2024 025 [facility], [address] [place], [address], 07/05/2024 18:14:24 Procedures None recorded. Surgeries None recorded. Imaging XR, knee, 3 view 2023 024 [email or web address] [facility], [address], [address] [place] [address], [place], [address], 07/24/2023 11:29:39 Medication Orders Zithromax Z-Manuel 250 mg tablet 2024 025 [facility] [place], [address], 02/21/2025 12:23:55 amlodipin e 5 mg tablet 2023 024 [facility] [address], [address] [place], [address], 06/22/2024 08:57:22 rosuvasta tin 5 mg tablet 2023 024 [facility] [address], [address] [place], [address], 06/22/2024 08:57:38 levothyro xine 50 mcg tablet 2023 024 [facility] [address], [address] [place], [address], 06/22/2024 08:57:28 Patient TargetsNo targets recorded. Patient Instructions Encounter Date Encounter Id Patient Instructions Last Modified By Organization Details Last Modified Time 06/22/2024 [id number] A healthy lifestyle: care instructions Not available 06/22/2024 09:34:33 12/22/2024 [id number] A healthy lifestyle: care instructions Not available 12/22/2024 11:08:33 Reason for Referral Chuck Splitter Referral fo r Impacted cerumen of bilateral ears Referring Physician: Tanesha Manning, Internal Medicine, Encounter Date: 06/22/2024 Results Created Date Observation Date Name Description Value Unit Range Abnormal Flag Note LastModifiedBy Organization Detail LastModifiedTime 11/03/1911/03/2024 IRON, TIBC AND CITLALI TIN PANEL iron, total 98 mcg/d L 50-180 normal Not Available [address], [address], 11/03/2024 06:54:51 11/03/1911/03/2024 IRON, TIBC AND CITLALI TIN PANEL iron binding capacity 351 mcg/d L_(ca lc) 250-42 5 normal Not Available [address], [address], 11/03/2024 06:54:51 11/03/1911/03/2024 IRON, TIBC AND CITLALI TIN PANEL % saturation 28 %_(ca lc) 20-48 normal Not Available [address], [address], 11/03/2024 06:54:51 11/03/1911/03/2024 IRON, TIBC AND CITLALI TIN PANEL ferritin 148 NG/mL 24-380 normal Not Available [address], [address], 11/03/2024 06:54:51 11/03/1911/03/2024 COMPR EHENS DIMA METAB OLIC PANEL glucose 73 mg/dL 65-99 normal Fasti ng refer ence inter yanci Not Available [address], [address], 11/03/2024 06:54:52 11/03/1911/03/2024 COMPR EHENS DIMA METAB OLIC PANEL urea nitrogen (BUN) 22 mg/dL 7-25 normal Not Available [address], [address], 11/03/2024 06:54:52 11/03/19 25 11/03/2024 COMPR EHENS DIMA METAB OLIC PANEL creatinine 1.03 mg/dL 0.70-1 .35 normal Not Available [address], [address], 11/03/2024 06:54:52 11/03/1911/03/2024 COMPR EHENS DIMA METAB OLIC PANEL eGFR 81 mL/mi n/1.7 3m2 > or = 60 normal Not Available [address], [address], 11/03/2024 06:54:52 11/03/1911/03/2024 COMPR EHENS DIMA METAB OLIC PANEL BUN/creatini ne ratio SEE NOTE: (calc ) 6-22 Not Repor aissatou: BUN and Creat inine are withi n refer ence range . Not Available [address], [address], 11/03/2024 06:54:52 11/03/1911/03/2024 COMPR EHENS DIMA METAB OLIC PANEL sodium 137 mmol/ L 135-14 6 normal Not Available [address], [address], 11/03/2024 06:54:52 11/03/1911/03/2024 COMPR EHENS DIMA METAB OLIC PANEL potassium 4.2 mmol/ L 3.5-5. 3 normal Not Available [address], [address], 11/03/2024 06:54:52 11/03/1911/03/2024 COMPR EHENS DIMA METAB OLIC PANEL chloride 101 mmol/ L 98-110 normal Not Available [address], [address], 11/03/2024 06:54:52 11/03/19 25 11/03/2024 COMPR EHENS DIMA METAB OLIC PANEL carbon dioxide 27 mmol/ L 20-32 normal Not Available [address], [address], 11/03/2024 06:54:52 11/03/19 25 11/03/2024 COMPR EHENS DIMA METAB OLIC PANEL calcium 9.0 mg/dL 8.6-10 .3 normal Not Available [address], [address], 11/03/2024 06:54:52 11/03/1911/03/2024 COMPR EHENS DIMA METAB OLIC PANEL protein, total 6.3 g/dL 6.1-8. 1 normal Not Available [address], [address], 11/03/2024 06:54:52 11/03/19 25 11/03/2024 COMPR EHENS DIMA METAB OLIC PANEL albumin 4.1 g/dL 3.6-5. 1 normal Not Available [address], [address], 11/03/2024 06:54:52 11/03/19 25 11/03/2024 COMPR EHENS DIMA METAB OLIC PANEL globulin 2.2 g/dL_ (calc ) 1.9-3. 7 normal Not Available [address], [address], 11/03/2024 06:54:52 11/03/19 25 11/03/2024 COMPR EHENS DIMA METAB OLIC PANEL albumin/glob ulin ratio 1.9 (calc ) 1.0-2. 5 normal Not Available [address], [address], 11/03/2024 06:54:52 11/03/19 25 11/03/2024 COMPR EHENS DIMA METAB OLIC PANEL bilirubin, total 0.6 mg/dL 0.2-1. 2 normal Not Available [address], [address], 11/03/2024 06:54:52 11/03/1911/03/2024 COMPR EHENS DIMA METAB OLIC PANEL alkaline phosphatase 48 U/L 35-144 normal Not Available [address], [address], 11/03/2024 06:54:52 11/03/1911/03/2024 COMPR EHENS DIMA METAB OLIC PANEL AST 15 U/L 10-35 normal Not Available [address], [address], 11/03/2024 06:54:52 11/03/1911/03/2024 COMPR EHENS DIMA METAB OLIC PANEL ALT 20 U/L 9-46 normal Not Available [address], [address], 11/03/2024 06:54:52 11/03/1911/03/2024 CBC (INCL UDES DIFF/ PLT) white blood cell count 6.4 thous and/u L 3.8-10 .8 normal Not Available [address], [address], 11/03/2024 06:54:53 11/03/1911/03/2024 CBC (INCL UDES DIFF/ PLT) red blood cell count 4.99 christopher on/uL 4.20-5 .80 normal Not Available [address], [address], 11/03/2024 06:54:53 11/03/1911/03/2024 CBC (INCL UDES DIFF/ PLT) hemoglobin 14.7 g/dL 13.2-1 7.1 normal Not Available [facility] [address], [address], 11/03/2024 06:54:53 11/03/1911/03/2024 CBC (INCL UDES DIFF/ PLT) hematocrit 45.1 % 38.5-5 0.0 normal Not Available [address], [address], 11/03/2024 06:54:53 11/03/1911/03/2024 CBC (INCL UDES DIFF/ PLT) MCV 90.4 fL 80.0-1 00.0 normal Not Available [facility] [address], [address], 11/03/2024 06:54:53 11/03/1911/03/2024 CBC (INCL UDES DIFF/ PLT) MCH 29.5 pg 27.0-3 3.0 normal Not Available [address], [address], 11/03/2024 06:54:53 11/03/1911/03/2024 CBC (INCL UDES DIFF/ PLT) MCHC 32.6 g/dL 32.0-3 6.0 normal For adult s, a sligh t decre ase in the calcu lated MCHC value (in the range of 30 to 32 g/dL) is most likel y not clini stefany signi fican t; tone er, it shoul d be inter prete d with cauti on in corre lat n with other red cell meera eters and the patie nt's clini ion condi tion. Not Available [address], [address], 11/03/2024 06:54:53 11/03/1911/03/2024 CBC (INCL UDES DIFF/ PLT) RDW 13.5 % 11.0-1 5.0 normal Not Available [address], [address], 11/03/2024 06:54:53 11/03/1911/03/2024 CBC (INCL UDES DIFF/ PLT) platelet count 222 thous and/u L 140-40 0 normal Not Available [address], [address], 11/03/2024 06:54:53 11/03/1911/03/2024 CBC (INCL UDES DIFF/ PLT) MPV 9.0 fL 7.5-12 .5 normal Not Available [address], [address], 11/03/2024 06:54:53 11/03/1911/03/2024 CBC (INCL UDES DIFF/ PLT) absolute neutrophils 3757 cells /uL 1500-7 800 normal Not Available [address], [address], 11/03/2024 06:54:53 11/03/1911/03/2024 CBC (INCL UDES DIFF/ PLT) absolute lymphocytes 1862 cells /uL 850-39 00 normal Not Available [address], [address], 11/03/2024 06:54:53 11/03/1911/03/2024 CBC (INCL UDES DIFF/ PLT) absolute monocytes 467 cells /uL 200-95 0 normal Not Available [address], [address], 11/03/2024 06:54:53 11/03/1911/03/2024 CBC (INCL UDES DIFF/ PLT) absolute eosinophils 256 cells /uL 15-500 normal Not Available [address], [address], 11/03/2024 06:54:53 11/03/1911/03/2024 CBC (INCL UDES DIFF/ PLT) absolute basophils 58 cells /uL 0-200 normal Not Available [address], [address], 11/03/2024 06:54:53 11/03/19 25 11/03/2024 CBC (INCL UDES DIFF/ PLT) neutrophils 58.7 % normal Not Available [address], [address], 11/03/2024 06:54:53 11/03/19 25 11/03/2024 CBC (INCL UDES DIFF/ PLT) lymphocytes 29.1 % normal Not Available [facility] [address], [address], 11/03/2024 06:54:53 11/03/19 25 11/03/2024 CBC (INCL UDES DIFF/ PLT) monocytes 7.3 % normal Not Available [facility] [address], [address], 11/03/2024 06:54:53 11/03/19 25 11/03/2024 CBC (INCL UDES DIFF/ PLT) eosinophils 4.0 % normal Not Available [facility] [address], [address], 11/03/2024 06:54:53 11/03/1911/03/2024 CBC (INCL UDES DIFF/ PLT) basophils 0.9 % normal Not Available [address], [address], 11/03/2024 06:54:53 02/14/2002/13/2025 CT, urogr am No observ ation record ed. [facility] [address], [place], [address], 02/14/2025 13:57:02 Result Notes None recorded. Problems Name Problem SNOMED Code Status Onset Date Resolution Date Notes Provider Name and Address Organization Details Recorded Time Hypothyroid ism 74882751 Active 2023 Callie Bess null, [place] [facility] 08:21:01 Hyperlipide opal 71989057 Active 2023 Call[place] [facility] 4 08:21:09 Hypertensiv e disorder 79925334 Active 2023 Call[place] [facility] 4 08:21:46 Body mass index 25-29 - overweight 141580276 Active 2023 Sharif Navarro [place], [place] [facility] 4 09:26:07 Family history of malignant neoplasm of prostate 768022448 Active 2023 JENNA Dawn Attn: Accountin g,[address] [facility], [place], [address], [place] [facility] 4 09:40:47 Osteoarthri tis of right knee joint 9974601829232 00 Active 2023 JENNA Dawn Attn: Accountin g,[address] [facility], [place], [address], [place] [facility] 4 09:40:49 Benign essential hypertensio n 9326675 Active 2023 JENNA Dawn Attn: Accountin g,[address] [facility], [place], [address], [place] [facility] 4 00:21:12 Long-term drug therapy Active 2023 JENNA Dawn Attn: Accountin g,[address] [facility], [place], [address], [place] [facility] 4 00:21:32 Overweight 844225815 Active 2024 JENNA Dawn Attn: Accountin g,[address] [facility], [place], [address], [place] [facility] 5 00:24:30 Impacted cerumen of bilateral ears 8515965057974 108 Active 2024 JENNA Dawn Attn: Accountin g,[address] [facility], [place], [address], [place] [facility] 5 00:25:07 Bilateral tinnitus 1373296951420 Active 2024 JENNA Dawn Attn: Murali victoria,[address] [facility], [place], [address], [place] [facility] 5 00:25:38 Overweight in adulthood with body mass index of 25 or more but less than 30 410956879 Active 2024 JENNA Dawn Attn: Murali victoria,[address] [facility], [place], [address], [place] [facility] 5 10:54:03 Occult blood detected in feces 92555042 Active 2024 JENNA Dawn Attn: Murali victoria,[address] [facility], [place], [address], [place] [facility] 5 10:02:31 Problem Notes None recorded. Procedures Surgical History Date Name Laterality Status Provider Name and Address Organization Details Recorded Time hernia repair completed Callie Bess [facility] 06/15/2023 08:24:25 hernia repair completed Callie Bess [facility] 06/15/2023 08:24:26 Knee Surgery completed Callie Bess [facility] 06/15/2023 08:24:45 Imaging Results None recorded. Procedure Notes None recorded. Medical Equipment None Reported. Allergies Allergen ID Allergen Name Allergen Category Reaction Reaction Severity Criticality Documentation Date Start Date Code Code System Note Provider Name and Address Organization Details Recorded Time 745297 Product containin g penicilli n (product) medicatio n Not available Not available Not available 06/15/2023 01959 8001 SNOMED Callie Bess [place], [place] - [facility] 08:20:21 Medications Name Sig Start Date Stop Date Status Note LastModified by Organization Details LastModified Time amoxicillin 500 mg capsule GIVE 1 CAPSULE BY MOUTH THREE TIMES DAILY 06/15 completed Not Available Not Available Not Available azithromyci n 250 mg tablet TAKE 2 TABLETS BY MOUTH ON DAY 1, AND THEN TAKE 1 TABLET BY MOUTH ONCE A DAY ON DAY 2 THROUGH DAY 5 02/21 completed Not Available Not Available Not Available hydrocodone 5 mg-acetamin ophen 325 mg tablet TAKE 1 TABLET BY MOUTH EVERY 4 HOURS NEEDED FOR PAIN 06/15 completed Not Available Not Available Not Available meloxicam 15 mg tablet TAKE 1 TABLET BY MOUTH ONCE DAILY NEEDED 2024 active Not Available Not Available Not Avai lable amlodipine 5 mg tablet TAKE 1 TABLET BY MOUTH ONCE DAILY active Not Available Not Available No t Available levothyroxi ne 50 mcg tablet Take 1 tablet by mouth once daily 2024 active Not Available Not Available Not Avai lable cephalexin 500 mg capsule TAKE 1 CAPSULE BY MOUTH TWICE DAILY FOR 5 DAYS 02/21 completed Not Available Not Available Not Available scopolamine 1 mg over 3 days transdermal patch APPLY 1 PATCH TOPICALLY EVERY 72 HOURS active Not Available Not Available No t Available rosuvastati n 5 mg tablet Take 1 tablet by mouth once daily 2024 active Not Available Not Available Not Avai lable Vitals Date Recorded Body height Body mass index (BMI) Body weight Respiratory rate Heart rate Systolic And Diastolic Provider Name and Address Organization Details Last Updated DateTime 4 175.26 cm 27.9 kg/m2 40425.2 4 g 16 /min 62 /min 115/83 mm[Hg] Callie Bess [facility] 4 08:34:04 Date Recorded Body height Body mass index (BMI) Body weight Oxygen saturation Heart rate Systolic And Diastolic Provider Name and Address Organization Details Last Updated DateTime 5 175.26 cm 28.4 kg/m2 06418.7 4 g 97 % 73 /min 126/82 mm[Hg] Sharif Navarro MA [facility] 5 09:03:54 Date Recorded Systolic And Diastolic Provider Name and Address Organization Details Last Updated DateTime 12/16/2023 132/80 mm[Hg] JENNA Dawn Attn: Accounting,[address] [place], [address], [facility] 12/16/2023 10:01:49 Date Recorded Body height Body mass index (BMI) Body weight Respiratory rate Oxygen saturation Heart rate Systolic And Diastolic Provider Name and Address Organization Details Last Updated DateTime 4 175.26 cm 27.6 kg/m2 57030.7 7 g 18 /min 97 % 67 /min 138/90 mm[Hg] Sharif Navarro MA [facility] 4 09:28:14 Date Recorded Respiratory rate Systolic And Diastolic Provider Name and Address Organization Details Last Updated DateTime 12/22/2024 16 /min 130/82 mm[Hg] JENNA Dawn Attn: Accounting,[address] [facility], [place], [address], [facility] 12/22/2024 11:07:58 Date Recorded Body height Body mass index (BMI) Body weight Oxygen saturation Heart rate Systolic And Diastolic Provider Name and Address Organization Details Last Updated DateTime 175.26 cm 27.1 kg/m2 83864.5 6 g 100 % 61 /min 124/82 mm[Hg] Sharif Navarro MA [facility] 5 10:47:49 Social History Question Answer Notes LastModified by Organizat ion Details LastModified Time Tobacco Smoking Status Never Smoker Callie Benzkarly shultz, [facility] 06/15/2023 08:23:15 Do You Have An Advance Directive? Yes Information n ot available 12/16/2023 Are You Blind Or Do You Have Difficulty Seeing? No [email or web address] Information n ot available 06/15/2023 What Is Your Level Of Caffeine Consumption? Moderate [email or web address] Information not available 06/15/2023 In The 14 Days Before Symptom Onset, Have You Had Close Contact With A Laboratory-confirm ed COVID-19 While That Case Was Ill? No [email or web address] Information n ot available 06/15/2023 In The 14 Days Before Symptom Onset, Have You Had Close Contact With A Person Who Is Under Investigation For COVID-19 While That Person Was Ill? No [email or web address] Information not available 06/15/2023 Have You Been To An Area Known To Be High Risk For COVID-19? No [email or web address] Information not available 06/15/2023 Are You Deaf Or Do You Have Serious Difficulty Hearing? No [email or web address] Information not available 06/15/2023 What Type Of Diet Are You Following? REGULAR [email or web address] Information n ot available 06/15/2023 Are There Any Guns Present In Your Home? No Information not available 12/16/2023 What Was The Date Of Your Most Recent Tobacco Screening? 12/22/2024 Information not available 12/22/2024 What Is Your Relationship Status? [email or web address] Information not available 06/15/2023 Do You Use Your Seat Belt Or Car Seat Routinely? Yes [email or web address] Information not available 06/15/2023 Do You Have Smoke And Carbon Monoxide Detectors In Your Home? Yes [email or web address] Information not available 06/15/2023 Do You Use Sunscreen Routinely? Yes [email or web address] Information not available 06/15/2023 Has Tobacco Cessation Counseling Been Provided? No Information not available 12/16/2023 Sex: Unknown Functional Status Question Answer Note LastModified by Organizat ion Details LastModified Time Do you use any illicit or recreational drugs? No Information not available 06/15/2023 Do you or have you ever used any other forms of tobacco or nicotine? No [email or web address] Information not available 06/15/2023 What is your level of alcohol consumption? Occasional [email or web address] Information not available 06/15/2023 Are you currently employed? Yes [email or web address] Information not available 06/15/2023 Are you able to care for yourself independently? 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 Moderate [email or web address] Information not available 06/15/2023 Mental Status None recorded. Family History Relationship Description Onset Age of this Age Resolved Age Notes LastModified by Organization Details LastModified Time Mother Dementia [email or web address] Not availab le 06/15/2023 08:22:20 Father Dementia [email or web address] Not availab le 06/15/2023 08:22:20 Father Carcinoma of prostate [email or web address] Not available 06/15 08:22:29 Medical History Condition Response High Blood Pressure Y High Cholesterol Y Immunizations Vaccine Type Date Status Note Provider Nam e and Address Organization Details Recorded Time influenza nasal, unspecified formulation 3 completed [place] [facility] 06/15/2023 08:34:49 Respiratory syncytial virus (RSV) MAB, unspecified 3 completed [place] [facility] 06/15/2023 08:34:58 SARS-COV-2 (COVID-19) vaccine, UNSPECIFIED 3 completed Sharif Navarro [place] [facility] 06/22/2024 09:00:10 Influenza, MDCK, quadrivalent, PF 3 completed Sharif Nav[place] [facility] 06/22/2024 09:00:10 Influenza, MDCK, quadrivalent, PF 0 completed Sharif Nav[place] [facility] 06/22/2024 09:00:10 Influenza, MDCK, quadrivalent, PF 2 completed Sharif Nav[place] [facility] 06/22/2024 09:00:10 zoster recombinant 2 completed Sharif Nav[place] [facility] 06/22/2024 09:00:10 zoster recombinant 1 completed Sharif Nav[place] [facility] 06/22/2024 09:00:10 COVID-19, mRNA, LNP-S, PF, 30 mcg/0.3 mL dose 1 completed Sharif Nav[place] [facility] 06/22/2024 09:00:10 COVID-19, mRNA, LNP-S, PF, 30 mcg/0.3 mL dose 1 completed Sharif Nav[place] [facility] 06/22/2024 09:00:10 COVID-19, mRNA, LNP-S, PF, 30 mcg/0.3 mL dose 1 completed Sharif Nav[place] [facility] 06/22/2024 09:00:10 COVID-19, mRNA, LNP-S, PF, 30 mcg/0.3 mL dose, scooby-sucrose 2 completed Sharif Nav[place] [facility] 06/22/2024 09:00:10 RSV, recombinant, protein subunit RSVpreF, adjuvant reconstituted, 0.5 mL, PF 3 completed Sharif Nav[place] [facility] 06/22/2024 09:00:10 COVID-19, mRNA, LNP-S, PF, scooby-sucrose, 30 mcg/0.3 mL 3 completed Sharif Nav[place] [facility] 06/22/2024 09:00:10 Influenza, split virus, trivalent, preservative 1 completed Sharif Nav[place] [facility] 06/22/2024 09:00:10 Influenza, split virus, quadrivalent, PF 9 completed Sharif Nav[place] [facility] 06/22/2024 09:00:10 COVID-19, mRNA, LNP-S, PF, scooby-sucrose, 30 mcg/0.3 mL 4 completed Not Available [facility] 12/22/2024 10:24:38 Influenza, MDCK, trivalent, PF 4 completed Not Available [facility] 12/22/2024 10:24:38 Past Encounters Encounter ID Performer Location Encounter Start Date Encounter Closed Date Diagnosis/Indication Diagnosis SNOMED-CT Code Diagnosis ICD10 Code Diagnosis IMO Codes Diagnosis Note [id number] Enoch Fournier MD [facility] [address] [place] [address] 06/15/2023 08:17:56 06/15/2023 09:15:31 Adult health examination 899251369 Z00.01 well exam completed Hyperlipidemia 75365714 E78.5 due for fasting lipids. refill on crestor 5mg daily Benign ess ential hypertension 5787902 I10 stable on amlodipine 5mg daily. Hypothyroidism 73121093 E03.9 due for TFT panel. refill on levothyrox ine 50mcg daily. Long-term drug therapy 545999697 Z79.899 routine labs due Diabetes m ellitus screening 172280513 Z13.1 a1c Family his tory of malignant neoplasm of prostate 438917102 Z80.42 psa annual due Osteoarthr itis of right knee joint 4272753099 36331 M17.11 check xray right knee with acute knee pain recent, hx of meniscal repair late 2022. [id number] Enoch Fournier MD [facility] [address] [place] [address] 12/16/2023 09:15:46 12/16/2023 10:06:09 Body mass index 25-29 - overweight 339687191 Z68.27 BMI 27.6 Hyperlipidemia 27030199 E78.5 due for fasting lipids again in May. Stable on crestor 5mg daily Benign ess ential hypertension 3011257 I10 stable on amlodipine 5mg daily. Blood pressure is 132/80 Hypothyroidism 65220453 E03.9 due for TFT panel in May. Stable on levothyrox ine 50mcg daily. Long-term drug therapy 012134459 Z79.899 CBC and CMP ordered for June 09, 2024 Family his tory of malignant neoplasm of prostate 741728503 Z80.42 psa annual due again in May. Osteoarthr itis of right knee joint 4610040273 82604 M17.11 Patient is on meloxicam 15 mg daily and seeing Orthopedic s Diabetes m giovanni screening 684616548 Z13.1 a1c due again in May. [id number] Enoch Fournier MD [facility] [address] [place] [address] 06/22/2024 08:47:38 06/22/2024 09:38:36 Body mass index 25-29 - overweight 907522863 Z68.28 BMI 28.4 Overweight 850329382 E66 .3 discussed healthy diet, exercise, controllin g carbohydra robin and added sugars in the diet Adult [facility] th examination [id number] Z00.01 well exam completed Hyperlipidemia 11546750 E78.5 labs reviewed continue Crestor 5 mg daily Benign ess ential hypertension 3550635 I10 stable on amlodipine 5mg daily. Hypothyroidism 92799069 E03.9 stable on levothyrox ine 50mcg daily. lab stable Long-term drug therapy [id number] Z79.899 labs reviewed Family his tory of malignant neoplasm of prostate 216587994 Z80.42 history noted, PSA 1.61 on May labs Bilateral tinnitus 87950 18821 102 H93.13 more noticeable at night. maybe 3 months or so he's noticed it. we will continue to monitor this he will see if it improves after he gets his ears cleared out Impacted c erumen of bilateral ears [id number] 084590 H61.23 refer to ENT for cerumen [id number] Enoch Fournier MD [facility] [place] [address] [place] [address] 12/22/2024 10:22:34 12/22/2024 11:23:03 Overweight in adulthood with body mass index of 25 or more but less than 30 [id number] E66.3 Z68.27 [id number] BMI 27.1 Hyperlipidemia 36459981 E78.5 labs reviewed continue Crestor 5 mg daily Benign ess ential hypertension 9662968 I10 stable on amlodipine 5mg daily. 130/82 on exam is Hypothyroidism 29245293 E03.9 stable on levothyrox ine 50mcg daily. lab stable Family his tory of malignant neoplasm of prostate 797522201 Z80.42 history noted, PSA 1.61 on May labs Bilateral tinnitus 92269 24314 102 H93.13 more noticeable at night. maybe 3 months or so he's noticed it. we will continue to monitor this he will see if it improves after he gets his ears cleared out Long-term drug therapy [id number] Z79.899 Labs are up-to-date Occult blo od detected in feces 05404043 R19.5 312454 2 episodes, resolved after 3 days, painless. normal scope october 2020 gave 10 year clearance. no further episodes. discussed diagnostic colonscopy would be aggressive way to evaluate since only one episode. could be fissure or internal hemorrhoid cause. he had hemorrhoid in past. may have be food source. we will plan to order diagnostic colonoscop y after new insurance takes effect in jan. Acute sinusitis 29478036 J01.90 [id number] Treat sinuses with [facility] Health Concerns Section Related Observation LastModified by Organization Detai ls LastModified Time None Recorded Concern Status LastModified by Organization Details LastModified Time None Recorded Advance Directives Directive Y: Payers Insurance Date Sequence Insurance Name Policy Number Policy Reece Covered Member ID Reece Member ID Guarantor Name 01/23/2025 1 DEVAN (PPO) [id number] Franky Cohen [id number] Franky Cohen 01/23/2025 1 [facility] [id number] Franky Cohen [id number] Franky Cohen Notes Date Note Type Note Provider Name and Address Organization Details Recorded Time 4 text/html HyperlipidemiaReported by PatientHPIFor duration, patient reportschronic. For risk factors, patient reportshypertension. For control, patient reportsusually well controlled. For compliance, patient reportscompliant,compliant with diet, andexercises. For complications, patient reportsno coronary artery disease,no peripheral artery disease, andno cardiovascular disease. HypertensionReported by PatientHPIFor duration, patient reportshas noted for years. For onset/timing, patient reportsbetter. For alleviating factors, patient reportsmedication. For associated symptoms, patient reportsno shortness of breath,no fatigue,no palpitations,no decline in exercise capacity, andno snoring. ThyroidReported by Patientpt is on medication for underactive thyroid and feeling stable. due for labs Patient known to provider from last office . Here for annual exam and labs JENNA Dawn Attn: Accounting,[address] [place], [address], [facility] 06/15/2023 17:37:50 4 text/html HyperlipidemiaReported by PatientHPIFor duration, patient reportschronic. For risk factors, patient reportshypertension. For control, patient reportsusually well controlled. For compliance, patient reportscompliant,compliant with diet, andexercises. For complications, patient reportsno coronary artery disease,no peripheral artery disease, andno cardiovascular disease.Patient is taking rosuvastatin 5 mg daily HypertensionReported by PatientHPIFor duration, patient reportshas noted for years. For onset/timing, patient reportsbetter. For alleviating factors, patient reportsmedication. For associated symptoms, patient reportsno shortness of breath,no fatigue,no palpitations,no decline in exercise capacity, andno snoring.Hypertension is controlled with amlodipine 5 mg daily ThyroidReported by Patientpt is on medication for underactive thyroid and feeling stable. due for labs Osteoarthritis of the right knee joint-patient is seeing orthopedics and on anti-inflammatory therapy JENNA Dawn Attn: Accounting,[address] [facility], [place], [address], [facility] 12/21/2023 00:22:37 5 text/html HyperlipidemiaReported by PatientHPIFor duration, patient reportschronic. For risk factors, patient reportshypertension. For control, patient reportsusually well controlled. For compliance, patient reportscompliant,compliant with diet, andexercises. For complications, patient reportsno coronary artery disease,no peripheral artery disease, andno cardiovascular disease. HypertensionReported by PatientHPIFor duration, patient reportshas noted for years. For onset/timing, patient reportsbetter. For alleviating factors, patient reportsmedication. For associated symptoms, patient reportsno shortness of breath,no fatigue,no palpitations,no decline in exercise capacity, andno snoring. ThyroidReported by Patientpt is on medication for underactive thyroid and feeling stable. due for labs patient reports some ringing in the ears more noticeable for the past 3 months. No trauma or injury. He notices it more during the evening time when it is quiet. JENNA Dawn Attn: Accounting,[address] [facility], [place], [address], [facility] 07/01/2024 00:25:55 5 text/html HyperlipidemiaReported by PatientHPIFor duration, patient reportschronic. For risk factors, patient reportshypertension. For control, patient reportsusually well controlled. For compliance, patient reportscompliant,compliant with diet, andexercises. For complications, patient reportsno coronary artery disease,no peripheral artery disease, andno cardiovascular disease.Patient is taking rosuvastatin 5 mg daily HypertensionReported by PatientHPIFor duration, patient reportshas noted for years. For onset/timing, patient reportsbetter. For alleviating factors, patient reportsmedication. For associated symptoms, patient reportsno shortness of breath,no fatigue,no palpitations,no decline in exercise capacity, andno snoring.Hypertension is controlled with amlodipine 5 mg daily ThyroidReported by Patientpt is on medication for underactive thyroid and feeling stable. due for labs Osteoarthritis of the right knee joint-patient is seeing orthopedics and on anti-inflammatory therapy JENNA Dawn Attn: Accounting,[address] [facility], [place], [address], [facility] 01/02/2025 10:03:06
--- OUTSIDE RECORDS SUMMARY | 2025-03-23 02:36 | XMS_ITS | Clinical Summary ---
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 Name Role Phone StevenPrateek huntamanda [facility] Primary Care Pr ovider Mercedes Spencer Unavailable [phone] Allergies Active Allergy Reactions Criticality Noted Date Comments Penicillins Unknown Medium 01/31/2020 Medications amLODIPine (NORVASC) 5 mg tabletIndicatio ns:hypertension Take 1 tablet (5 mg total) by mouth every morning 0 Active rosuvastatin (CRESTOR) 5 mg tabletIndicatio ns:hyperlipidem ia Take 1 tablet (5 mg total) by mouth nightly 1 Active levothyroxine (SYNTHROID) 50 mcg tabletIndicatio ns:hypothyroidi sm Take 1 tablet (50 mcg total) by mouth every morning Active meloxicam (MOBIC) 15 mg tablet Take 1 tablet (15 mg total) by mouth daily 30 tablet 1 4 Active Additional Information Patient taking differently:15 mg oralEvery 6 hours PRN, Reported on 12/25/2024 azithromycin (ZITHROMAX) 250 mg tablet 5 Active Active Problems Problem Noted Date Diagnosed Date Acute medial meniscus tear of right knee 023 Acute lateral meniscus tear of right knee 2022 Digital mucous cyst of finger of right hand 08/18 Tear of meniscus of knee 09/01/2022 023 Derangement of right knee 08/25/20222022 Acute bronchitis 06/06/2022 09/10/2022 Hypothyroidism 01/30/2022 09/10/2022 Abnormal finding on thyroid function test 202109/10/2022 Benign essential hypertension 12/09/2021 Hyperlipidemia 11/28/2021 09/10/2022 Lipid screening 06/01/2013 Encounters Date Type Department Care Team Description 02/13/2025 2:43 PM CDT - 02/13/2025 11:59 PM CDT Hospital Encounter [facility] Imaging and Radiology [id number] [place] [id number] Gross hematuria Discharge Disposition: Discharge to home or self care 12/27/2024 Results Follow-Up [facility] [address] [address] Josephine Morfin, ARIEL Urine culture Urine, clean voided 12/25/2024 5:06 PM CDT - 12/25/2024 11:59 PM CDT Hospital Encounter [address] [address] Acute cystitis with hematuria Discharge Disposition: Discharge to home or self care 12/25/2024 10:45 AM CDT Office Visit [facility] [address] [address] Makenna Whitten PA Acute cystitis with hematuria (Primary Dx) from Last 3 Months Immunizations Immunization Administration Dates Next Due Pfizer SARS-CoV-2 Monovalent Vaccination (12+ Yrs) PURPLE 07/24/2020,07/01/2020 Surgical History Surgery Date Site/Laterality Comments KNEE SURGERY 02/18/2013 - 03/19/2013 Right INGUINAL HERNIA REPAIR Bilateral 1983, 1999 CYST REMOVAL Right middle finger Medical History Medical History Date Comments Back pain HTN (hypertension) HLD (hyperlipidemia) Hypothyroidism Asthma seasonal allergi es Family History Medical History Relation Name Comments Stroke Father Anesthesia problems Neg Hx Relation Name Status Comments Father Social History Tobacco Use Types Packs/Day Years Used Date Smoking Tobacco: Never Smokeless Tobacco: Never Tobacco Cessation:Counseling Given: Not Answered AUDIT-C Answer Date Recorded Q1: How often do you have a drink containing alc ohol? 2-3 times a week 10/08/2022 Q2: How many drinks containi ng alcohol do you have on a typical day when you are drinking? 1 or 2 10/08/2022 Frequency of Binge Drinking Not on file 09/19 Personal Safety Answer Date Recorded Have you ever been in or are you currently in a harmful physical or emotional relationship or is someone making you feel afraid or unsafe? 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 Gender Identity Not on file Sexual Orientation Not on file Last Filed Vital Signs Vital Sign Reading Time Taken Comments Blood Pressure 143/83 12/25/2024 9:59 AM CDT Pulse 72 12/25/2024 9:59 AM CDT Temperature 36.8 C (98.3 F) 12/25/2024 9:59 AM CDT Respiratory Rate 20 12/25/2024 9:59 AM CDT Oxygen Saturation 97% 12/25/2024 9:59 AM CDT Inhaled Oxygen Concentration - - Weight 83.9 kg (185 lb) 12/25/2024 9:59 AM CDT Height 175.3 cm (5' 9) 12/06/2024 11:32 AM CDT Body Mass Index 27.32 12/06/2024 11:32 AM CDT Plan of Treatment Health Maintenance Due Date Last Done Comments Colon Cancer Screening-Colonoscopy 1960 Depression Screening 1960 Hepatitis C Screening 1960 Prostate Cancer Screening-PSA 1960 DTaP/Tdap/Td Vaccine (1 - Tdap) 08/07/1971 Hepatitis B Screening 1978 Regular Well Visit/Exam 18-64 1978 Covid-19 Vaccine (2024- season) 2024 03/13/2021, 07/24/2020, 07/01/2020 Influenza Vaccine (#1) 2024 , 02/09/2023, 01/19/2023, Additional history exists Zoster Vaccine Completed 06/04/2021, 04/02/2021 Pneumococcal vaccine <65 Aged Out No longer eligible based on patient's age to complete this topic Procedures Procedure Name Priority Date/Time Associated Diagnosis Comments CT UROGRAM Schedule Routine, Read Routine (OP Routine) 02/13/2025 3:27 PM CDT Gross hematuria POCT URINALYSIS DIPSTICK Routine 12/25/2024 9:56 AM CDT Acute cystitis with hematuria URINE CULTURE Routine 12/25/2024 9:02 AM CDT Acute cystitis with hematuria from Last 3 Months Results * CT Urogram W Contrast No 3D (02/13/2025 3:27 PM CDT) Anatomical Region Laterality Modality Body N/A Computed Tomogra phy 02/13/2025 7:3 2 PM CDT Impressions 02/13/2025 7:32 PM CDT Left-sided nephrolithiasis. 2. No urothelial based neoplasm. Electronically signed by: Karitk Duggan M.D., MPH Narrative 02/13/2025 7:32 PM CDT EXAMINATION: CT UROGRAPHY WITH AND WITHOUT CONTRAST HISTORY: Gross hematuria TECHNIQUE: CT urography of the abdomen and pelvis was performed prior to and following the uneventful intravenous administration of 125 mL Optiray 350 in the combined nephrographic and excretory phases according to a split bolus protocol. COMPARISON: No prior studies were available for comparison. FINDINGS: UROGRAPHIC FINDINGS: Right Kidney: The right kidney is normal size. There are no focal lesions. No calculi are seen. There is no hydronephrosis. The ureter is normal. The urothelium appears normal. Left Kidney: The left kidney is normal size. There are multiple left-sided parapelvic cyst. There are 3 nonobstructing left renal calculi. There is no hydronephrosis. The ureter is normal. The urothelium appears normal. Bladder: There is no wall thickening. No masses are seen. NON-UROGRAPHIC FINDINGS: Visualized lung bases are normal. Liver spleen pancreas adrenal glands and gallbladder are normal. There is no obstruction pneumoperitoneum or free fluid. There is no retroperitoneal mesenteric or pelvic lymphadenopathy. The appendix is visualized and is normal. Osseous windows demonstrate no lytic or blastic lesions. Procedure Note Kartik Duggan MD - 02/13/2025 EXAMINATION: CT UROGRAPHY WITH AND WITHOUT CONTRAST HISTORY: Gross hematuria TECHNIQUE: CT urography of the abdomen and pelvis was performed prior to and following the uneventful intravenous administration of 125 mL Optiray 350 in the combined nephrographic and excretory phases according to a split bolus protocol. COMPARISON: No prior studies were available for comparison. FINDINGS: UROGRAPHIC FINDINGS: Right Kidney: The right kidney is normal size. There are no focal lesions. No calculi are seen. There is no hydronephrosis. The ureter is normal. The urothelium appears normal. Left Kidney: The left kidney is normal size. There are multiple left-sided parapelvic cyst. There are 3 nonobstructing left renal calculi. There is no hydronephrosis. The ureter is normal. The urothelium appears normal. Bladder: There is no wall thickening. No masses are seen. NON-UROGRAPHIC FINDINGS: Visualized lung bases are normal. Liver spleen pancreas adrenal glands and gallbladder are normal. There is no obstruction pneumoperitoneum or free fluid. There is no retroperitoneal mesenteric or pelvic lymphadenopathy. The appendix is visualized and is normal. Osseous windows demonstrate no lytic or blastic lesions. IMPRESSION: Left-sided nephrolithiasis. 2. No urothelial based neoplasm. Electronically signed by: Kartik Duggan M.D., MPH Tanesha [facility] CT PROCEDURE S Final Result * (ABNORMAL) POCT urinalysis dipstick (12/25/2024 9:56 AM CDT) Color, Urine, POC Light Yellow Clarity, ur, POC Clear Clear Glucose, ur, POC Negative Negative Bilirubin, ur, POC Negative Negative Ketones, ur, POC Negative Negative Specific [place], POC 1.010 1.003 - 1.030 Blood, ur, POC Large(A) Negative pH, ur, POC 7.0 5.0 - 8.0 Protein, ur, POC Negative Negative Urobilinogen, urine, POC 0.2 0.2 - 1.0 mg/dL Nitrite, ur, POC Negative Negative Leukocytes, ur, POC Large(A) Negative Lot Number [id number] Urine 12/25/2024 9:56 AM CDT Makenna [facility] POINT OF CARE TEST ORDER MIRELA Final Result * Urine culture Urine, clean voided (12/25/2024 9:02 AM CDT) Report Final Report: Less than 100,000 colonies/mL (clinically insignificant growth based on current clinical standards) Comment:Testing performed by : [facility], [address] [place]., [address] Organism (CLINICALLY INSIGNIFICANT GROWTH LOIS Urine, clean voided 12/25/2024 9:02 AM CDT 12/26/2024 1:11 AM CDT Narrative LOIS ESCOBAR - 12/27/2024 8:13 AM CDT Testing performed by [facility] ([phone]) Makenna [facility] MICROBIOLOGY - GENER AL ORDERABLES Final Result [id number] [place] [address] from Last 3 Months Insurance [facility] ACCESS CHOICE [employer] ACCESS CHOICE Care Teams 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
--- OUTSIDE RECORDS SUMMARY | 2025-03-23 02:36 | XMS_ITS | Continuity of Care Document ---
Author Organization [place] [facility] Address [address] [place] [address] Care Team Providers Care Food Services Manager Name Role Phone JAMEEL MANNING Primary Care Provider Unavailab le Assessment No assessment recorded. Plan of Treatment Reminders Order Date Submit Date Provider Last Modified By Organization Details Last Modified Time Details Appointments ANY 15 2025 09:30A M JENNA Dawn Not available Not available Not available Lab None recorded. Referral None recorded. Procedures None recorded. Surgeries None recorded. Imaging None recorded. Medication Orders Zithromax Z-Manuel 250 mg tablet 2024 025 [facility] [address], [address], [place], [address], 02/21/2025 12:23:55 Patient TargetsNo targets recorded. Patient Instructions Encounter Date Encounter Id Patient Instructions Last Modified By Organization Details Last Modified Time 12/22/2024 [id number] A healthy lifestyle: care instructions [email or web address] Not available 12/22/2024 11:08:33 Reason for Referral None Reported. Results Created Date Observation Date Name Description Value Unit Range Abnormal Flag Note LastModifiedBy Organization Detail LastModifiedTime 02/14/2002/13/2025 CT, urogr am No observ ation record ed. [facility] [address], [place], [address], 02/14/2025 13:57:02 Result Notes None recorded. Problems Name Problem SNOMED Code Status Onset Date Resolution Date Notes Provider Name and Address Organization Details Recorded Time Hypothyroid ism 22992622 Active 2023 Callie shlutz, TERRI [facility] 4 08:21:01 Hyperlipide opal 49146010 Active 2023 Callie Bess null, [place] - [facility] 4 08:21:09 Hypertensiv e disorder 00451458 Active 2023 Calliedaisy Bess [place] [facility] 4 08:21:46 Body mass index 25-29 - overweight 521370326 Active 2023 Sharif Navarro [place] null, [place] - [facility] 4 09:26:07 Family history of malignant neoplasm of prostate 204496396 Active 2023 JENNA Dawn Attn: Murali victoria,[address] [place], [address], [place] - [facility] 4 09:40:47 Osteoarthri tis of right knee joint 7469959730494 00 Active 2023 JENNA Dawn Attn: Murali victoria,[address] [place], [address], [place] [facility] 4 09:40:49 Benign essential hypertensio n 4215417 Active 2023 JENAN Dawn Attn: Murali victoria,[address] [place], [address], [place] - [facility] 4 00:21:12 Long-term drug therapy Active 2023 JENNA Dawn Attn: Murali victoria,[address] [place], [address], [place] - [facility] 4 00:21:32 Overweight 338362571 Active 2024 JENNA Dawn Attn: Murali victoria,[address] [place], [address], [place] [facility] 5 00:24:30 Impacted cerumen of bilateral ears 3854145890846 108 Active 2024 JENNA Dawn Attn: Murali victoria,[address] [facility], [place], [address], [place] - [facility] 5 00:25:07 Bilateral tinnitus 1413502224039 Active 2024 JENNA Dawn Attn: Murali victoria,[address] [facility], [place], [address], [place] - [facility] 5 00:25:38 Overweight in adulthood with body mass index of 25 or more but less than 30 195643419 Active 2024 JENNA Dawn Attn: Murali victoria,[address] [facility], [place], [address], [place] - [facility] 5 10:54:03 Occult blood detected in feces 76076013 Active 2024 JENNA Dawn Attn: Murali victoria,[address] [facility], [place], [address], [facility] - [facility] 5 10:02:31 Problem Notes None recorded. Procedures Surgical History Date Name Laterality Status Provider Name and Address Organization Details Recorded Time hernia repair completed Callie Bess [facility] 06/15/2023 08:24:25 hernia repair completed Callie Bess [facility] 06/15/2023 08:24:26 Knee Surgery completed Callie Bess [facility] 06/15/2023 08:24:45 Imaging Results None recorded. Procedure Notes None recorded. Medical Equipment None Reported. Allergies Allergen ID Allergen Name Allergen Category Reaction Reaction Severity Criticality Documentation Date Start Date Code Code System Note Provider Name and Address Organization Details Recorded Time 856328 Product containin g penicilli n (product) medicatio n Not available Not available Not available 06/15/2023 40607 8001 SNOMED Callie Bess [place], [place] - [facility] 4 08:20:21 Medications Name Sig Start Date Stop [...] Available Not Avai lable Vitals Date Recorded Respiratory rate Systolic And Diastolic Provider Name and Address Organization Details Last Updated DateTime 12/22/2024 16 /min 130/82 mm[Hg] JENNA Dawn Attn: [address] [place], [address], [facility] 12/22/2024 11:07:58 Date Recorded Body height Body mass index (BMI) Body weight Oxygen saturation Heart rate Systolic And Diastolic Provider Name and Address Organization Details Last Updated DateTime 175.26 cm 27.1 kg/m2 32979.5 6 g 100 % 61 /min 124/82 mm[Hg] Sharif Navarro MA [facility] 10:47:49 Social History Question Answer Notes LastModified by Organizat ion Details LastModified Time Tobacco Smoking Status Never Smoker Callie shultz, [facility] 06/15/2023 08:23:15 Do You Have An Advance Directive? Yes Information n ot available 12/16/2023 Are You Blind Or Do You Have Difficulty Seeing? No [email or web address] Information n ot available 06/15/2023 What Is Your Level Of Caffeine Consumption? Moderate [email or web address] Information not available 06/15/2023 In The 14 Days Before Symptom Onset, Have You Had Close Contact With A Laboratory-confirm ed COVID-19 While That Case Was Ill? No [email or web address] Information n ot available 06/15/2023 In The 14 Days Before Symptom Onset, Have You Had Close Contact With A Person Who Is Under Investigation For COVID-19 While That Person Was Ill? No [email or web address] Information not available 06/15/2023 Have You Been To An Area Known To Be High Risk For COVID-19? No [email or web address] Information not available 06/15/2023 Are You Deaf Or Do You Have Serious Difficulty Hearing? No Information not available 06/15/2023 What Type Of Diet Are You Following? REGULAR [email or web address] Information n ot available 06/15/2023 Are There Any Guns Present In Your Home? No Information not available 12/16/2023 What Was The Date Of Your Most Recent Tobacco Screening? 12/22/2024 Information not available 12/22/2024 What Is Your Relationship Status? [email or web address] Information not available 06/15/2023 Do You Use Your Seat Belt Or Car Seat Routinely? Yes [email or web address] Information not available 06/15/2023 Do You Have Smoke And Carbon Monoxide Detectors In Your Home? Yes [email or web address] Information not available 06/15/2023 Do You Use Sunscreen Routinely? Yes [email or web address] Information not available 06/15/2023 Has Tobacco Cessation Counseling Been Provided? No Information not available 12/16/2023 Sex: Unknown Functional Status Question Answer Note LastModified by Organizat ion Details LastModified Time Do you use any illicit or recreational drugs? No [email or web address] Information not available 06/15/2023 Do you or have you ever used any other forms of tobacco or nicotine? No Information not available 06/15/2023 What is your level of alcohol consumption? Occasional [email or web address] Information not available 06/15/2023 Are you currently employed? Yes [email or web address] Information not available 06/15/2023 Are you able to care for yourself independently? 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 Moderate Information not available 06/15/2023 Mental Status None recorded. Family History Relationship Description Onset Age of this Age Resolved Age Notes LastModified by Organization Details LastModified Time Mother Dementia [email or web address] Not availab le 06/15/2023 08:22:20 Father Dementia [email or web address] Not availab le 06/15/2023 08:22:20 Father Carcinoma of prostate [email or web address] Not available 06/15 08:22:29 Medical History Condition Response High Blood Pressure Y High Cholesterol Y Immunizations Vaccine Type Date Status Note Provider Nam e and Address Organization Details Recorded Time influenza nasal, unspecified formulation 3 completed Call[place] [facility] 06/15/2023 08:34:49 Respiratory syncytial virus (RSV) MAB, unspecified 3 completed [place] [facility] 06/15/2023 08:34:58 SARS-COV-2 (COVID-19) vaccine, UNSPECIFIED 3 [place] [facility] 06/22/2024 09:00:10 Influenza, MDCK, quadrivalent, PF 3 [place] [facility] 06/22/2024 09:00:10 Influenza, MDCK, quadrivalent, PF 0 [place] [facility] 06/22/2024 09:00:10 Influenza, MDCK, quadrivalent, PF 2 completed Sharif Nav[place] [facility] 06/22/2024 09:00:10 zoster recombinant 2 [place] [facility] 06/22/2024 09:00:10 zoster recombinant 1 [place] [facility] 06/22/2024 09:00:10 COVID-19, mRNA, LNP-S, PF, 30 mcg/0.3 mL dose 1 [place] [facility] 06/22/2024 09:00:10 COVID-19, mRNA, LNP-S, PF, 30 mcg/0.3 mL dose 1 [place] [facility] 06/22/2024 09:00:10 COVID-19, mRNA, LNP-S, PF, 30 mcg/0.3 mL dose 1 [place] [facility] 06/22/2024 09:00:10 COVID-19, mRNA, LNP-S, PF, 30 mcg/0.3 mL dose, scooby-sucrose 2 [place] [facility] 06/22/2024 09:00:10 RSV, recombinant, protein subunit RSVpreF, adjuvant reconstituted, 0.5 mL, PF 3 completed [place] [facility] 06/22/2024 09:00:10 COVID-19, mRNA, LNP-S, PF, scooby-sucrose, 30 mcg/0.3 mL 3 [place] [facility] 06/22/2024 09:00:10 Influenza, split virus, trivalent, preservative 1 [place] [facility] 06/22/2024 09:00:10 Influenza, split virus, quadrivalent, PF 9 [place] [facility] 06/22/2024 09:00:10 COVID-19, mRNA, LNP-S, PF, scooby-sucrose, 30 mcg/0.3 mL 4 completed Not Available [facility] 12/22/2024 10:24:38 Influenza, MDCK, trivalent, PF 4 completed Not Available [facility] 12/22/2024 10:24:38 Past Encounters Encounter ID Performer Location Encounter Start Date Encounter Closed Date Diagnosis/Indication Diagnosis SNOMED-CT Code Diagnosis ICD10 Code Diagnosis IMO Codes Diagnosis Note [id number] Enoch Fournier [facility] [place] [address] [place] [address] 12/22/2024 10:22:34 12/22/2024 11:23:03 Overweight in adulthood with body mass index of 25 or more but less than 30 036685610 E66.3 Z68.27 9202438447 BMI 27.1 Hyperlipidemia 49887517 E78.5 labs reviewed continue Crestor 5 mg daily Benign ess ential hypertension 9975512 I10 stable on amlodipine 5mg daily. 130/82 on exam is Hypothyroidism 66784263 E03.9 stable on levothyrox ine 50mcg daily. lab stable Family his tory of malignant neoplasm of prostate 901701163 Z80.42 history noted, PSA 1.61 on May labs Bilateral tinnitus 98000 88228 102 H93.13 more noticeable at night. maybe 3 months or so he's noticed it. we will continue to monitor this he will see if it improves after he gets his ears cleared out Long-term drug therapy 598608612 Z79.899 Labs are up-to-date Occult blo od detected in feces 04583933 R19.5 507758 2 episodes, resolved after 3 days, painless. [...] insurance takes effect in jan. Acute sinusitis 26942610 J01.90 [id number] Treat sinuses with Z-Manuel Health Concerns Section Related Observation LastModified by Organization Detai ls LastModified Time None Recorded Concern Status LastModified by Organization Details LastModified Time None Recorded Payers Encounter Date Sequence Insurance Name Policy Number Policy Reece Covered Member ID Reece Member ID Guarantor Name 12/22/2024 1 BRINDAANNIE [id number] Franky Cohen [id number] Franky Cohen Notes Date Note Type Note Provider Name and Address Organization Details Recorded Time 5 text/html HyperlipidemiaReported by PatientHPIFor duration, patient [...] anti-inflammatory therapy JENNA Dawn Attn: Accounting[address] [place], [address], [facility] - [facility] 01/02/2025 10:03:06
[2025-03-23 08:11] VITALS: BP 124/90; PULSE 57; RESP 16; TEMP 36.2; O2SAT 98
[2025-03-23] MEDS: LACTATED RINGERS 1,000 ML 150 ML IV CONT (08:20)
--- NOTE | 2025-03-23 08:25 | WPDANESEPPF ---
Anes - Initial Pre Proc Eval Procedure: Operation Date: 03/23/25 09:00 Proposed Procedures p Diagnostic Colonoscopy - Herberth Franklin MD Date/Time: 03/23/25 08:25 Surgeon: Herberth Franklin MD Pre Op Diagnosis: Other fecal abnormalities (Black or Tarry stools) Patient Data Age: 64 Gender: M Height: 1.75 m Weight: 82.1 kg Last Vital Signs Temp 36.2 C L 03/23/25 08:11 Pulse 57 L 03/23/25 08:11 Resp 16 03/23/25 08:11 BP 124/90 03/23/25 08:11 Pulse Ox 98 03/23/25 08:11 O2 Del Method Room Air 03/23/25 08:11 Allergies Allergy/AdvReac Type Severity Reaction Status Date / Time No Known Allergies Allergy Verified 03/23/25 08:10 Home Medications ?Medication ?Instructions ?Recorded ?Confirmed ?Type amlodipine 5 mg tablet 5 mg PO DAILY 10/31/20 03/23/25 History rosuvastatin 5 mg tablet 5 mg PO DAILY 10/31/20 03/23/25 History levothyroxine 50 mcg tablet 50 mcg PO DAILY 03/03/25 03/23/25 History meloxicam 15 mg tablet 15 mg PO DAILY PRN swelling in knee 03/03/25 03/23/25 History Patient hx anesthesia problems: none Family hx anesthesia problems: none Results Review: All pre-operative results and documents have been reviewed as part of the pre-operative evaluation. [facility] Past Medical History Medical History Hyperlipidemia HTN (hypertension) Surgical History Surgical History H/O arthroscopic knee surgery H/O hernia repair Family History Family History Other Cerebrovascular accident Family history of allergic disorder Hypertension Malignant neoplasm of prostate Social History Social History Smoking status: Never smoker Alcohol intake: current Drinks per week: 10 Substance use type: does not use Living arrangements: with family Spiritual care concerns: No Anes - Eval Final PreProcedure Day of Procedure 03/23/25 08:25 Patient weight: overweight Heart: regular rate and rhythm Lungs: clear to auscultation Airway: Mallampati scale class II Neurological: alert and oriented Last oral intake: >/= 8 hours ASA classification: II Emergent: no Anesthetic plan: proceed Anesthesia type and monitoring: general GIVS and standard monitoring Results Review: All pre-operative results and documents have been reviewed as part of the pre-operative evaluation. Informed Consent: The patient's anesthetic plan and its attendant risks and benefits were discussed with the patient/family/POA. Questions were solicited and answers provided to the satisfaction of the patient/family/POA.
--- NOTE | 2025-03-23 08:25 | PM.HPGS ---
History of Present Illness History of Present Illness Consent: Risks, benefits, and alternatives have been discussed and questions answered. Patient agrees to proceed with procedure. Chief complaint: Other fecal abnormalities (Black or Tarry stools) Narrative: Franky Cohen is a 64 year old male with episode of rectal bleeding few months ago, last colonoscopy 2020 with diverticulosis Review of Systems Review of Systems: All systems reviewed & are unremarkable except as noted in HPI and below PMFSH Past Medical History Medical History (Updated 03/23/25 @ 08:26 by Herberth Franklin MD) Rectal bleeding Hyperlipidemia HTN (hypertension) Surgical History Surgical History H/O arthroscopic knee surgery H/O hernia repair Family History Family History Other Cerebrovascular accident Family history of allergic disorder Hypertension Malignant neoplasm of prostate Social History Social History Smoking status: Never smoker Alcohol intake: current Drinks per week: 10 Substance use type: does not use Living arrangements: with family Spiritual care concerns: No Meds Home Medications and Allergies Home Medications ?Medication ?Instructions ?Recorded ?Confirmed ?Type amlodipine 5 mg tablet 5 mg PO DAILY 10/31/20 03/23/25 History rosuvastatin 5 mg tablet 5 mg PO DAILY 10/31/20 03/23/25 History levothyroxine 50 mcg tablet 50 mcg PO DAILY 03/03/25 03/23/25 History meloxicam 15 mg tablet 15 mg PO DAILY PRN swelling in knee 03/03/25 03/23/25 History Allergies Allergy/AdvReac Type Severity Reaction Status Date / Time No Known Allergies Allergy Verified 03/23/25 08:10 Vital Signs Vital Signs - 24 hr 03/23/25 08:11 Temperature 97.2 F L Pulse Rate 57 L Respiratory Rate 16 Blood Pressure 124/90 Pulse Oximetry 98 Oxygen Delivery Room Air Exam Const: General: comfortable and no acute distress HENMT: Face/Nose/Sinus: Normal nares present Eyes: General: appearance normal, both eyes and all related structures Neck: Neck: no JVD Resp: Auscultation: clear to auscultation bilaterally Cardio: Rate: regular rate Rhythm: regular rhythm GI: Inspection: non-distended GI Palp: Yes Soft to palpation Skin: General skin exam: normal color Extrem: General: normal to inspection Psych: Mental Status: mental status grossly normal Assessment and Plan Assessment and plan (1) Rectal bleeding: Code(s): K62.5 - Hemorrhage of anus and rectum Status: Acute Assessment and Plan: colonoscopy
[2025-03-23 08:40] VITALS: BP 104/60; PULSE 64; RESP 21; O2SAT 99
[2025-03-23 08:50] VITALS: BP 121/75; PULSE 49; RESP 18; O2SAT 97
[2025-03-23 09:00] VITALS: BP 108/77; PULSE 49; RESP 19; O2SAT 96
== END 2025-03-23 09:05 | disposition home or self-care (01) ==
PROVIDERS: PCP Physician Assistant; Referring Provider Physician Assistant; Visit Provider Internal Medicine Gastroenterology
PROC: 0DJD8ZZ Inspection of Lower Intestinal Tract, Via Natural or Artificial Opening Endoscopic (ICD-10-PCS; CPT 45378; principal; 2025-03-23 09:00)
DX: K64.8 Other hemorrhoids (principal); K57.30 Diverticulosis of large intestine without perforation or abscess without bleeding; E78.5 Hyperlipidemia, unspecified; I10 Essential (primary) hypertension; Z98.890 Other specified postprocedural states; Z80.42 Family history of malignant neoplasm of prostate
CPT/HCPCS: 45378; J2704; J7120